=== PATIENT | male | born 1950 | race Caucasian/White ===

== ENCOUNTER 2018-08-21 15:37 | Outpatient (CLI) | payer MEDICARE, BC, SELFPAY ==
[2018-08-21 15:59] LABS: Abs Immature Grans 0.02 k/cumm (0.0-0.09); Absolute Basophil Count 0.06 k/cumm (0.0-0.2); Absolute Eosinophil Count 0.41 k/cumm (0.0-0.7); Absolute Monocyte Count 0.85 k/cumm (0.11-0.7); Absolute Neutrophil Count 4.13 k/cumm (1.2-6.7); Basophils % 0.9; Eosinophils % 6.1; HCT 34.8 % (40.0-50.0); HGB 11.2 g/dL (13.5-17.5); Immature Grans % 0.3; Lymphocytes % 19.2; Mean Corp. HGB Concentration 32.2 g/dL (32.0-36.0); Mean Corpuscular Volume 83.9 fL (80-95); Mean Platelet Volume 8.7 fL (8.0-11.0); Monocytes % 12.6; Neutrophils % 60.9; Platelet Count 251 x1000/uL (130-400); RBC 4.15 m/cumm (4.50-6.00); RBC Distribution Width 15.3 % (11.8-14.1); White Blood Cell Count 6.77 k/cumm (4.4-10.8)
[2018-08-21 16:15] LABS: Hemoglobin A1C 5.9 % (4.5-6.2)
[2018-08-21 17:07] LABS: Ferritin 20 ng/mL (8-388)
== END 2018-08-21 15:57 ==
PROVIDERS: PCP Emergency Medicine; Visit Provider Emergency Medicine
DX: D64.9 Anemia, unspecified (principal); E11.9 Type 2 diabetes mellitus without complications
CPT/HCPCS: 82728; 83036; 85025

== ENCOUNTER 2019-05-07 14:19 | Outpatient (CLI) | payer MEDICARE, BC, SELFPAY ==
--- NOTE | 2019-05-07 14:20 | DI.RAD_ITS ---
EXAM: XR CERVICAL SPINE COMP 4-5V INDICATION: neck pain, cervicalgia, M54.2. COMPARISON: No exams were available for comparison TECHNIQUE: 2D digital imaging was performed. FINDINGS: There is some straightening of the normal cervical lordosis. C2-3 disc space is well maintained. Th ere are facet degenerative changes at this level. There is moderate narrowing of the C3-4 disc space . There is moderate to severe narrowing of the C5-6 and C6-7 disc spaces. The C4-5 disc space is we ll maintained. Neural foraminal narrowing is seen on the right side from C3-4 through C6-7. IMPRESSION: Degenerative disc changes and facet degenerative changes causing right neural foraminal narrowing.
[2019-05-07 14:47] LABS: HCT 32.1 % (40.0-50.0); HGB 9.7 g/dL (13.5-17.5); Mean Corp. HGB Concentration 30.2 g/dL (32.0-36.0); Mean Corpuscular Hemoglobin 22.6 pg (27.0-33.0); Mean Platelet Volume 8.6 fL (8.0-11.0); Platelet Count 259 x1000/uL (130-400); RBC Distribution Width 16.2 % (11.8-14.1); White Blood Cell Count 4.93 k/cumm (4.4-10.8)
[2019-05-07 14:48] LABS: Mean Corpuscular Volume 74.7 fL (80-95)
[2019-05-07 15:16] LABS: Calculated LDL 136 mg/dL; Cholesterol 188 mg/dL (50-200); Ferritin 7 ng/mL (8-388); HDL Cholesterol 39 mg/dL (40-60); Triglyceride 67 mg/dL (30-150)
[2019-05-08 12:49] LABS: PSA, Screening 1.8 ng/ml (0-6.5)
== END 2019-05-07 14:39 ==
PROVIDERS: PCP Emergency Medicine; Visit Provider Emergency Medicine
DX: M54.2 Cervicalgia (principal); M50.322 Other cervical disc degeneration at C5-C6 level; M50.323 Other cervical disc degeneration at C6-C7 level; M99.51 Intervertebral disc stenosis of neural canal of cervical region; D64.9 Anemia, unspecified; I10 Essential (primary) hypertension
CPT/HCPCS: 36415; 80061; 84153; 85027; 72050; 82728

== ENCOUNTER → 2019-06-16 13:35 | Outpatient (BNVA) | payer MEDICARE, BC, SELFPAY | PROVIDERS: PCP Emergency Medicine; Referring Provider Emergency Medicine; Visit Provider Surgery | DX: D64.9 Anemia, unspecified (principal); I10 Essential (primary) hypertension; R01.1 Cardiac murmur, unspecified | CPT/HCPCS: 99203 ==

== ENCOUNTER 2019-07-02 01:15 | Outpatient (CLI) | payer MEDICARE, BC, SELFPAY ==
--- NOTE | 2019-07-02 07:34 | DI.US_ITS ---
APPROVED REPORT EXAM: Comprehensive 2D, Doppler, and color-flow Echocardiogram Patient Location: Out-Patient Spanish Speaking Nanny: Rachael Vicente RDCS ([place]) Rhythm: NSR Indications: systolic heart murmur r01.1 Conclusion Left Ventricle : The left ventricle is normal size. The left ventricular systolic function is normal. The left ventricular ejection fraction is within the normal range. Borderline left ventricular hyper trophy. There is normal LV segmental wall motion. The left ventricular diastolic function is normal. LVEF is estimated to be 55-60%. Right Ventricle : Right ventricle is mildly dilated. A prominent moderator band was visualized. The r ight ventricular systolic function is normal. Atria : The left atrium size is normal. The right atrium size is normal. Aortic Valve : Aortic valve is trileaflet. Aortic valve annulus and leaflets sparing the tips are mod erately sclerotic. No aortic regurgitation is present. Mild to moderate aortic stenosis (Mean Gradien t 15mmHg). Mitral Valve : Mitral valve leaflets are thickened. Mild mitral regurgitation. No evidence of mitral valve stenosis. Tricuspid Valve : The tricuspid valve leaflets are thickened , but open well. Trivial tricuspid regur gitation. Great Vessels : The aortic root is normal in size. IVC is top normal in size and collapses >50% with inspiration. Estimated RVSP is 15-18 mmHg. There is no prior echocardiogram available for comparison. Wall motion Left Ventricle The left ventricle is normal size. The left ventricular systolic function is normal. The left ventric ular ejection fraction is within the normal range. Borderline left ventricular hypertrophy. There is normal LV segmental wall motion. The left ventricular diastolic function is normal. LVEF is estimated to be 55-60%. Right Ventricle Right ventricle is mildly dilated. A prominent moderator band was visualized. The right ventricular s ystolic function is normal. Atria The left atrium size is normal. The right atrium size is normal. Aortic Valve Aortic valve is trileaflet. Aortic valve annulus and leaflets sparing the tips are moderately sclerot ic. Mild to moderate aortic stenosis (Mean Gradient 15mmHg). No aortic regurgitation is present. Mitral Valve Mitral valve leaflets are thickened. No evidence of mitral valve stenosis. Mild mitral regurgitation. Tricuspid Valve The tricuspid valve leaflets are thickened , but open well. Trivial tricuspid regurgitation. Pulmonic Valve Pulmonic valve is not well visualized. Great Vessels The aortic root is normal in size. IVC is top normal in size and collapses >50% with inspiration. Est imated RVSP is 15-18 mmHg. Pericardium Prominent anterior epicardial fat pad is present. 2D Dimensions IVSd 1.20 cm M: 0.6-1.2 LV EDV A2C 106.70 mL PWd 1.15 cm M: 0.6 - 1.2 LV EDV A4C 111.50 mL LVDd 4.95 cm M: 4.2 - 5.8 LA Volume Index A2C 27.30 mL/m2 LVDs 3.15 cm M: 2.5 - 4.0 LA Volume Index A4C 30.31 mL/m2 Aortic Root 3.65 cm M: 3.1 - 3.7 LA Volume Index Biplane 30.66 mL/m2 RA Area A4C 17.39 cm2 LA Area A4C 19.11 cm2 LVOT 2.15 cm (M/F) 1.5-2.5 LA Area A2C 19.34 cm2 Ascending Aorta 3.51 cm M: 2.6 - 3.4 EF AP4 58.30 % LVEF (Teich) 65.34 % EF AP2 52.30 % LVEF (Fontanez's) 54.10 % M: 52 - 72 EF BP 54.10 % LV Volume 81.75 mL M: 62 - 150 LV Volume Index 40.87 mL/m2 M: 34 - 74 FS 35.95 % LV Diastology E/A Ratio 0.8 MED E' 0.08 (>0.07 m/s) LV E/e MED 10.40 (<14) LAT E' 0.09 (>0.1 m/s) LV E/e LAT 8.75 (<14) Pulm Vein s 0.71 m/s PV S/D Ratio 1.29 Pulm Vein d 0.55 m/s Pulm Vein a 0.37 m/s Aortic Valve LVOT Area 3.74 cm2 LVOT Peak Regan. 0.95 m/s LVOT Mean Regan. 0.74 m/s LVOT Peak Gr. 3.95 mmHg BURT Vmax Index 0.68 cm2/m2 LVOT Mean Gr. 2.35 mmHg LVOT VTI 0.20 m BURT Mean Regan. Index 0.72 cm2/m2 AoV Peak Regan. 2.75 (0.5-1.3 m/s) AoV Mean Regan. 1.91 m/s AO Peak GR. 30.25 mmHg AO Mean GR. 16.01 (<5 mmHg) VTI Ratio 0.39 BURT (VTI) 1.45 (2.5-4.5 cm2) BURT (VTI) Index 0.70 cm/m2 Mitral Valve MV E Max Regan. 0.81 (0.4-1.3 m/s) MV A Velocity 1.00 (0.4-1.3 m/s) E/A Ratio 0.80 MV Decel. Time 178.35 (160-240 msec) MV PHT 51.73 msec MVA PHT 4.25 cm2 Pulmonary Valve PV Peak Velocity 1.55 (0.5-1.5 m/s) Tricuspid Valve TR P. Velocity 1.97 m/s TV Regurg Vmax 1.97 m/s RAP Estimate 3.00 mmHg RVSP 19.00 mmHg TR P. Gradient 16.00 mmHg
== END 2019-07-02 01:35 ==
PROVIDERS: PCP Emergency Medicine; Visit Provider Surgery
DX: R01.1 Cardiac murmur, unspecified (principal); I35.0 Nonrheumatic aortic (valve) stenosis
CPT/HCPCS: 93306

== ENCOUNTER 2019-07-08 06:16 | Day surgery (SDC) | payer MEDICARE, BC, SELFPAY ==
[2019-07-08 06:26] VITALS: BP 140/91; PULSE 88; RESP 17; TEMP 37; O2SAT 98
[2019-07-08] MEDS: Lactated Ringers 1,000 ML 80 ML IV (06:54)
[2019-07-08] MEDS: Lidocaine 2% Viscous 15 ML CUP (07:30)
--- NOTE | 2019-07-08 07:42 | BOWEL_PTH ---
PATIENT: Rikki Villaseñor LOC: [facility] U#:[id number] AGE/SX: 69/M ROOM: RE07/08/[address]: Viviana Naranjo MD : [id number] BED: DIS: 07/08/2019 SPEC #: [id number] RECD: 07/08/19 12:16 STATUS: CHARLY REQ #: [id number] EVE: 07/08/19 07:[address]: Viviana Naranjo DEPT: Surgical Specimen RECD BY: Rebeka Larson ENTERED: 07/08/19 12:19 SP TYPE: Bowel OTHR DR: Tani Brandon DO Tissues: 1 - BIOPSY BOWEL 2 - STOMACH BIOPSY 3 - BIOPSY BOWEL 4 - BIOPSY BOWEL Procedures: GROSS AND MICRO LEVEL 4 Comments: [id number]
--- NOTE | 2019-07-08 08:24 | W.PM.DSUDISC ---
Discharge Plan Disposition Patient Disposition: HOME Condition: Good Discharge Details Reason For Visit: EGD, Colonoscopy Attending Provider: Viviana Naranjo Primary Care Provider: Tani Brandon Home Meds and New Rx's Prescriptions: Continued polysaccharide iron complex 150 mg iron capsule 150 mg PO DAILY Qty: 90 RF: 6 ibuprofen 200 MG capsule 400 mg PO PRN RF: 0 flaxseed oil 1,000 MG capsule 1,000 mg PO DAILY RF: 0 docusate sodium [Colace] 100 MG capsule 200 mg PO DAILY RF: 0 [id number] C-Mn 1 EACH tablet 2 tab PO DAILY RF: 0 turmeric root extract 500 MG capsule 500 mg PO DAILY RF: 0 amlodipine 5 mg tablet 5 mg PO DAILY Qty: 90 RF: 4 omeprazole 40 mg capsule,delayed release(DR/EC) 40 mg PO DAILY Qty: 90 RF: 3 Discharge Instructions Additional Instructions: Findings: Your upper endoscopy was normal. Routine biopsies were done. Two small polyps were removed. My office will contact you with biopsy results. Internal hemorrhoids were banded. Pressure and a small amount of bleeding is expected. Sitz baths and ibuprofen can help with discomfort. Follow up: Plan for a colonoscopy in 5 years. Not all of the hemorrhoids were amenable to banding. If bleeding continues, surgical hemorrhoidectomy can be considered. Please call if you develop: fevers >101.5 Nausea or Vomiting Abdominal pain that is not transient DAY SURGERY UNIT POST COLONOSCOPY INSTRUCTIONS 1. Because there will be medication in your system for the next 24 hours, you may feel a little sleepy. Your coordination will be affected. Therefore: a. Do not drive or operate dangerous equipment for 24 hours. b. Do not drink alcohol beverages for 24 hours (not even beer). c. Plan to go home and rest for the day. 2. Generally there are no restrictions on your activity after a day or so has gone by, but you may feel a bit fatigued for a few days. 3 After you arrive home you may have a light meal and return to a normal diet as you can tolerate it without feeling sick to your stomach. 4. After surgery, you may feel pain or discomfort. This should be only transient, but if it persists please contact your doctor. 5. If there are any questions regarding the findings of your procedure, please feel free to contact your doctor. 6. If you are unable to contact your doctor with a problem, contact the hospital at [phone]. 6. Continue all your regular medications unless directed otherwise. I understand the above instructions and have no questions. Signature of Patient or Responsible Adult Escort Date/Time Name of Responsible Adult Escort Signature of Nurse Date/Time Activity:: Activity as Tolerated Diet:: As Tolerated Discharge Orders Discharge Orders: Discharge Order (Routine); Ordered 07/08/19 Ordered By: Viviana Naranjo DS: Diagnosis Discharge Diagnosis (1) Hemorrhoids: Status: Acute (2) Diverticulosis: Status: Acute (3) Colon polyps: Status: Acute
[2019-07-08 09:07] VITALS: BP 132/89; PULSE 61; RESP 17; TEMP 36.3; O2SAT 97
--- NOTE | 2019-07-10 10:49 | ENDO_ITS ---
REPORT OF OPERATIVE PROCEDURES DATE OF PROCEDURE July 08, 2019 PREOPERATIVE DIAGNOSES 1. Anemia. 2. Internal hemorrhoids. POSTOPERATIVE DIAGNOSES 1. Normal EGD. 2. Colon polyps. 3. Mild diverticulosis. 4. Internal hemorrhoids. PROCEDURES 1. EGD with duodenal and gastric biopsies. 2. Colonoscopy with cold forceps polypectomy. 3. Internal hemorrhoid banding. SURGEON Viviana Naranjo M.D. ANESTHESIA General. INDICATIONS This is a 69-year-old man who has microcytic anemia. His hemoglobin has declined over the past year f rom 11.2 to 9.7. He is asymptomatic with the exception of bleeding internal hemorrhoids. His last EGD and colonoscopy were in 2016. He also had hemorrhoid banding done earlier this year. PROCEDURE DESCRIPTION He was placed in the left lateral decubitus position. Propofol was titrated to sedation. The scope wa s advanced into the esophagus under direct visualization and down into the stomach and duodenum. Ther e was no duodenitis or ulcers noted. Biopsies were taken from the second portion of the duodenum to evaluate for celiac disease. The stoma ch itself appeared normal, including on retroflexed view of the fundus and the lesser curvature. Nilda tarun antrum biopsies were obtained to evaluate for H. pylori. The GE junction exhibited no masses, Bar rett's, inflammation or strictures. The air was suctioned from the stomach and the scope was withdraw n with no other esophageal lesions found. Digital rectal examination revealed mixed hemorrhoids with the more prominent one being in the right posterior location. There was a grade 3 prolapsing internal hemorrhoid that was friable and quite tino se to the dentate line. The scope was advanced to the cecum without difficulty. The ileocecal valve a nd appendiceal orifice were clearly identified. The scope was slowly withdrawn with a diminutive polyp identified in the ascending colon, this was re moved completely with cold forceps. The transverse colon was normal. In the distal descending colon a diminutive polyp was removed with the cold forceps and sent to Pathology. The remainder of the sigmo id colon was normal. The rectum revealed prominent internal hemorrhoids on retroflexed view. The air was suctioned from the colon and the scope withdrawn. The lighted anoscope was used to apply three ba nds to prominent internal hemorrhoids. Unfortunately, the area that appears to be prolapsing and it m aybe the most likely source of bleeding, was not amenable to banding due to its location near the den newman line and large nature. The patient tolerated the procedure well and was stable to Recovery. He will need a followup colonoscopy in five years pending polyp pathology. I did advise him the hemo rrhoids could be treated with a surgical hemorrhoidectomy, but I would wait approximately a month to see how successful the banding has been. He will contact me for any further symptoms. CC: Tani Brandon D.O.
== END 2019-07-08 09:40 | disposition home or self-care (01) ==
PROVIDERS: PCP Emergency Medicine; Visit Provider Surgery
PROC: (CPT 45380; principal; 2019-07-08 07:30)
DX: D64.9 Anemia, unspecified (principal); D12.2 Benign neoplasm of ascending colon; D12.4 Benign neoplasm of descending colon; K64.2 Third degree hemorrhoids; K31.89 Other diseases of stomach and duodenum; I10 Essential (primary) hypertension
CPT/HCPCS: 45380; 45398; 43239; 88305; J2250; J3010

== ENCOUNTER 2019-09-10 12:20 | Outpatient (CLI) | payer MEDICARE, BC, SELFPAY ==
[2019-09-10 16:53] LABS: HCT 32.6 % (40.0-50.0); HGB 9.7 g/dL (13.5-17.5); Mean Corp. HGB Concentration 29.8 g/dL (32.0-36.0); Mean Corpuscular Hemoglobin 21.7 pg (27.0-33.0); Mean Corpuscular Volume 72.8 fL (80-95); Mean Platelet Volume 8.9 fL (8.0-11.0); Platelet Count 315 x1000/uL (130-400); RBC 4.48 m/cumm (4.50-6.00); RBC Distribution Width 17.5 % (11.8-14.1); White Blood Cell Count 6.33 k/cumm (4.4-10.8)
[2019-09-10 18:04] LABS: Iron 19 ug/dL (65-175); Total Iron Binding Capacity 520 ug/dL (250-450); Transferrin Sat 4 % (20-55)
[2019-09-10 18:17] LABS: Ferritin 5 ng/mL (26-388)
[2019-09-10 19:10] LABS: Reticulocyte 1.2 % (0.5-2.4)
[2019-09-12 13:18] LABS: IgA 259 mg/dL (85-499); Tissue Transglutaminase IgA <1.2 U/mL (<4.0)
== END 2019-09-10 12:40 ==
PROVIDERS: PCP Emergency Medicine; Visit Provider Emergency Medicine
DX: D64.9 Anemia, unspecified (principal); K92.2 Gastrointestinal hemorrhage, unspecified
CPT/HCPCS: 36415; 82784; 83516; 85027; 82728; 83540; 83550; 85045

== ENCOUNTER 2020-02-13 10:47 | Outpatient (CLI) | payer MEDICARE, BC, SELFPAY ==
[2020-02-13 12:41] LABS: HCT 44.5 % (40.0-50.0); HGB 15.4 g/dL (13.5-17.5); Mean Corp. HGB Concentration 34.6 g/dL (32.0-36.0); Mean Corpuscular Hemoglobin 31.1 pg (27.0-33.0); Mean Corpuscular Volume 89.9 fL (80-95); Mean Platelet Volume 9.1 fL (8.0-11.0); Platelet Count 247 x1000/uL (130-400); RBC 4.95 m/cumm (4.50-6.00); Reticulocyte 1.9 % (0.5-2.4); White Blood Cell Count 6.23 k/cumm (4.4-10.8)
[2020-02-13 12:47] LABS: Iron 107 ug/dL (65-175); Total Iron Binding Capacity 360 ug/dL (250-450); Transferrin Sat 30 % (20-55)
[2020-02-13 13:00] LABS: Ferritin 99 ng/mL (26-388)
== END 2020-02-13 11:07 ==
PROVIDERS: PCP Emergency Medicine; Visit Provider Emergency Medicine
DX: D64.9 Anemia, unspecified (principal)
CPT/HCPCS: 36415; 85027; 82728; 83540; 83550; 85045

== ENCOUNTER 2020-05-05 01:33 | Outpatient (CLI) | payer MEDICARE, BC, SELFPAY ==
--- NOTE | 2020-05-05 14:06 | DI.RAD_ITS ---
EXAM: XR SHOULDER LT COMPLETE 2+V CLINICAL HISTORY: left shoulder injury,LT SHOULDER PAIN, M25.512. TECHNIQUE: 2D digital imaging was performed. COMPARISON: No exams were available for comparison FINDINGS: BONES: No acute or healing fracture is present. No bony destructive lesion is seen. JOINTS: No dislocation present. Degenerative changes are seen at the acromioclavicular joint. SOFT TISSUE: Normal. IMPRESSION: Unremarkable radiographs of the left shoulder. DATA REPOSITORY: RADIATION DOSE DELIVERED:
== END 2020-05-05 01:53 ==
PROVIDERS: PCP Emergency Medicine; Visit Provider Emergency Medicine
DX: M25.512 Pain in left shoulder (principal)
CPT/HCPCS: 73030

== ENCOUNTER 2020-06-09 21:00 | Outpatient (REF) | payer MEDICARE, BC, SELFPAY ==
[2020-06-09 22:41] LABS: HCT 45.4 % (40.0-50.0); MCH 31.7 pg (27.0-33.0); MCHC 35.2 % (32.0-36.0); MCV 90.1 fL (80-95); MPV 9.3 fL (8.0-11.0); Platelet Count 259 10^3/uL (130-400); RBC 5.04 10^6/uL (4.36-5.78); RDW 12.6 % (11.8-14.1); RDW-SD 41.2 fL; WBC 7.53 10^3/uL (4.4-10.8)
[2020-06-09 22:58] LABS: Ferritin 138 ng/mL (26-388)
== END 2020-06-09 21:20 ==
LOC: LBN 21:00
PROVIDERS: PCP Emergency Medicine; Visit Provider Emergency Medicine
DX: D64.9 Anemia, unspecified (principal)
CPT/HCPCS: 85027; 82728

== ENCOUNTER 2020-08-11 19:57 | Outpatient (REF) | payer MEDICARE, BC, SELFPAY ==
[2020-08-11 22:20] LABS: HCT 45.1 % (40.0-50.0); HGB 15.7 g/dL (13.5-17.5); MCH 31.3 pg (27.0-33.0); MCHC 34.8 % (32.0-36.0); MCV 89.8 fL (80-95); MPV 9.2 fL (8.0-11.0); Platelet Count 253 10^3/uL (130-400); RBC 5.02 10^6/uL (4.36-5.78); RDW 12.5 % (11.8-14.1); RDW-SD 41.3 fL; WBC 6.65 10^3/uL (4.4-10.8)
[2020-08-11 22:36] LABS: Ferritin 172 ng/mL (26-388)
== END 2020-08-11 20:17 ==
LOC: NCHCN 19:57
PROVIDERS: PCP Emergency Medicine; Visit Provider Emergency Medicine
DX: D64.9 Anemia, unspecified (principal)
CPT/HCPCS: 85027; 82728

== ENCOUNTER 2021-08-30 02:00 | Outpatient (CLI) | payer MEDICARE, SELFPAY ==
[2021-08-30 14:34] LABS: HCT 47.2 % (40.0-50.0); MCH 30.9 pg (27.0-33.0); MCHC 33.9 % (32.0-36.0); MCV 91.1 fL (80-95); MPV 8.5 fL (8.0-11.0); Platelet Count 255 10^3/uL (130-400); RBC 5.18 10^6/uL (4.36-5.78); RDW 12.9 % (11.8-14.1); RDW-SD 43.6 fL; WBC 6.63 10^3/uL (4.4-10.8)
[2021-08-30 15:32] LABS: Anion Gap 8.3 mmol/L (3-11); BUN 15 mg/dL (7-18); CO2 28.7 mmol/L (21.0-32.0); Calcium 9.2 mg/dL (8.5-10.1); Chloride 102 mmol/L (98-107); Glucose 97 mg/dL (74-106); Potassium 4.1 mmol/L (3.5-5.1); Sodium 139 mmol/L (136-145)
[2021-08-30 15:35] LABS: Iron 121 ug/dL (65-175); Total Iron Binding Capacity 360 ug/dL (250-450); Transferrin Sat 34 % (20-55)
== END 2021-08-30 02:01 | disposition home or self-care (01) ==
LOC: LBO 02:00
PROVIDERS: PCP Family Medicine; Visit Provider Emergency Medicine
DX: I10 Essential (primary) hypertension (principal); D64.9 Anemia, unspecified
CPT/HCPCS: 36415; 80048; 85027; 83540; 83550

== ENCOUNTER → 2022-02-14 02:47 | Outpatient (CLI) | payer MEDICARE, SELFPAY ==
--- NOTE | 2022-02-14 11:59 | DI.US_ITS ---
APPROVED REPORT EXAM: Comprehensive 2D, Doppler, and color-flow Echocardiogram Patient Location: Out-Patient Extractions Technician: Marnie Kebede RDCS ([place]) Indications: Evaluate for interval change, prominent murmur, HTN Other Information Study Quality: Adequate Conclusion Normal left ventricular wall thickness and chamber size. Estimated ejection fraction is 55 to 60%. Wall motion is normal Normal right ventricular size and systolic function Both atria are normal in size The aortic valve is sclerotic. Number of aortic valve leaflets cannot be accurately determined. The re is mild aortic stenosis by gradients. Peak gradient is 18, mean 14 mmHg. Calculated aortic valve area is 1.03 cm??, moderate aortic stenosis Normal mitral valve with mild regurgitation Normal tricuspid valve with trace regurgitation. Right ventricular systolic pressure could not be es timated Compared to the echocardiogram from 2019 there is no significant interval change Wall motion Left Ventricle The left ventricle is normal size. The left ventricular systolic function is normal. The left ventric ular ejection fraction is within the normal range. There is normal left ventricular wall thickness. T here is normal LV segmental wall motion. There is no ventricular septal defect visualized. LVEF is 55 -60%. Right Ventricle The right ventricle is normal size. The right ventricular systolic function is normal. Atria The left atrium size is normal. The right atrium size is normal. The interatrial septum is intact wit h no evidence for an atrial septal defect. Aortic Valve The Aortic valve is sclerotic. Aortic valve is calcified. Mild aortic stenosis. Peak aortic valve gra dient is 26.1mmHg. Highest mean aortic valve gradient is 14.2mmHg. Calculated BURT by the continuity e quation is 1.03cm2. No aortic regurgitation is present. Mitral Valve The mitral valve is normal in structure. No evidence of mitral valve stenosis. Mild mitral regurgitat ion.. Tricuspid Valve The tricuspid valve is normal in structure. There is no tricuspid valve stenosis. Trace tricuspid reg urgitation. Pulmonic Valve The pulmonary valve is normal in structure. There is no pulmonic valvular stenosis. There is no pulmo александр valvular regurgitation. Great Vessels The aortic root is normal in size. The ascending aorta is normal in size. Aortic arch is normal in ca liber. IVC is normal in size and collapses >50% with inspiration. Pericardium There is no pericardial effusion. 2D Dimensions IVSD d PLAX 1.04 cm M: 0.6-1.2 LV Vol A2C d MOD 69.2 mL LVPW d PLAX 1.03 cm M: 0.6 - 1.2 LV Vol A4C d MOD 110.4 mL LVID d PLAX 4.67 cm M: 4.2 - 5.8 LA vol/ BSA A2C s A-L 19.5 mL/m2 LVDs 3.10 cm M: 2.5 - 4.0 LA vol/ BSA A4C s A-L 18.9 mL/m2 Ao Root d 2.70 cm M: 3.1 - 3.7 LA Vol/ BSA Biplane s A-L 20.4 mL/m2 RA Area A4C 12.96 cm2 LA Area A4C s MOD 13.97 cm2 RA Vol/ BSA A4C s A-L 15.6 mL/m2 LA Area A2C s MOD 15.06 cm2 Ao Asc Diam d 3.45 cm M: 2.6 - 3.4 LV EF A4C MOD 55.3 % LV EF Teichholz 61.8 % LV EF A2C MOD 60.7 % LVEF (Fontanez's) 57.55 % M: 52 - 72 LV EF Biplane MOD 57.5 % LV Volume 67.07 mL M: 62 - 150 SV 51.57 mL LV Volume Index 33.36 mL/m2 M: 34 - 74 SV Index 25.62 mL/m2 LV Vol Biplane MOD 89.6 mL FS 33.15 % M-Mode TAPSE 2.45 cm (M/F) >1.7 LV Diastology MV E' medial 0.067 (>0.07 m/s) E/A Ratio 0.8 LV E/e MED 10.00 (<14) MV E Vmax 0.67 (0.4-1.3 m/s) MV E' lateral 0.104 (>0.1 m/s) MV A Vmax 0.80 (0.4-1.3 m/s) LV E/e LAT 6.45 (<14) MV E/A Ratio 0.83 MV E/E' medial 10.03 MV E/E' lateral 6.49 Aortic Valve LVOT Area 2.88 cm2 AoV Area Vmax 1.03 cm2 LVOT Vmax 0.92 m/s AoV Area/ BSA (Vmax) 0.51 cm2/m2 LVOT Mean Regan. 0.59 m/s BURT Mean Regan. 0.97 cm2 LVOT Peak Grad 3.4 mmHg BURT Mean Regan. Index 0.48 cm2/m2 LVOT Mean Grad 1.6 mmHg LVOT VTI 0.211 m LVOT Diam s 1.90 cm AoV Vmax 2.56 m/s Velocity Ratio 0.35 AoV Mean Regan. 1.75 m/s AoV Peak Grad 26.1 mmHg LVOT SV 60.84 mL AoV Mean Grad 14.2 mmHg AoV VTI 0.541 m AoV Area VTI 1.12 cm2 AoV Area/ BSA (VTI) 0.56 cm/m2 Mitral Valve MV DT 218 (160-240 msec) MV PHT 63 msec MV Area PHT 3.48 cm2 MV VTI 0.333 m MV Area VTI 1.83 (4.0-6.0 cm2) Pulmonary Valve PV Vmax 1.49 (0.5-1.5 m/s) RVOT Peak Gr. 2.75 mmHg PV Peak Grad 8.9 mmHg RVOT Mean Gr. 1.55 mmHg PV Mean Grad 4.9 mmHg RVOT VTI 0.133 m PV VTI 0.360 m RVOT Vmax 0.83 m/s
== END ==
PROVIDERS: PCP Family Medicine; Visit Provider Family Medicine
DX: I10 Essential (primary) hypertension (principal); R01.1 Cardiac murmur, unspecified
CPT/HCPCS: 93306

== ENCOUNTER 2022-05-25 16:08 | Inpatient (IN) | payer MEDICARE, SELFPAY ==
--- NOTE | 2022-05-25 16:00 | RT.EKG_ITS ---
APPROVED REPORT Exam: Resting ECG Reason for Exam: epigastric pain Patient Location: E HR:106 bpm ECG Measurements Heart Rate 106 AXIS AZ 160 P 56 QRSd 78 QRS 57 QT 299 T 55 QTc 398 Conclusion Sinus tachycardia...rate> 99 Probable left atrial enlargement...P >50mS, <-0.10mV V1 Normal [place] Nonspecific ST-T changes
[2022-05-25 16:10] VITALS: BP 158/95; PULSE 115; RESP 20; TEMP 37.6; O2SAT 98
--- NOTE | 2022-05-25 17:15 | ED.GENADUL_ITS ---
Discharge Plan Disposition Patient Disposition: [facility] INPATIENT Condition: Stable Discharge Details Clinical Impression: Cholecystitis Admit Date/Time: 05/25/22 19:54 Admit Provider: Javier Nava Attending Provider: Javier Nava Primary Care Provider: Arleth Portillo ED Provider: Zamzam Solares Medical Decision Making 71-year-old male presents to the ER with chief complaint of epigastric abdominal pain, vomiting and feeling bloated which began last night. He reports during rest of today he has had acid reflux. He did vomit once which somewhat relieves his symptoms. He does have a past medical history of aortic stenosis, GERD, hemorrhoids, hyperlipidemia, hypertension. EKG was reviewed by Dr. Luna ER attending, please see his official review, no old EKG available for review, there is questionable ST elevation in leads II and III Cardiac work-up ordered including serial troponins, lipase CBC CMP. Will consider CT chest abdomen pelvis. Differential diagnosis includes not limited to CAD, CT, NSTEMI, GERD, cholecystitis, bowel obstruction. CBC shows no leukocytosis, absolute neutrophils 8.93, sodium within normal limits potassium within normal limits, BUN/creatinine also within normal limits, glucose 133 calcium 10.2, total bilirubin is 3.5, liver enzymes are elevated AST is 412, ALT 622 alk phos 260. Initial troponin within normal limits lipase 182. 1935: CT shows gallbladder wall thickening and a vague increased density within the gallbladder. Suspected large gallstone in the neck. Patient is still complaining of some GERD type symptoms. Surgery paged. 194: Spoke with Dr. Nava with General surgery he was able to personally view the CT, He recommends admission and re-eval of labs tomorrow and possibly surgery. Imaging Data Radiologic Study: Imaging: CT Scan Radiologist's impression: Liver: Fatty infiltration. Small simple cyst noted. Gallbladder and bile ducts: Gallbladder wall thickening and vague increased density within. Suspected large gallstone in the neck No calcified stones. No ductal dilation. Pancreas: No ductal dilation. Spleen: No splenomegaly. Adrenal glands: No mass. Kidneys and ureters: Renal hypodensities not clearly cystic No hydronephrosis. Stomach and bowel: Colonic diverticulosis. No obstruction. No mucosal thickening. Appendix: No evidence of appendicitis. Intraperitoneal space: Unremarkable. No free air. No significant fluid collection. Vasculature: Unremarkable. No abdominal aortic aneurysm. Lymph nodes: Unremarkable. No enlarged lymph nodes. Urinary bladder: Unremarkable as visualized. Reproductive: Unremarkable as visualized. Bones/joints: Unremarkable. No acute fracture. Soft tissues: Unremarkable. IMPRESSION: Abnormal gallbladder as described. Consider right upper quadrant ultrasound Nonurgent findings as noted HPI General Mode of arrival: ambulatory . Date/Time Provider Initiated Documentation: 05/25/22 16:35 . Limitations to Documentation: no limitations . Information obtained by: patient, RN notes reviewed and old records reviewed . HPI Narrative: 71-year-old male presents to the ER with chief complaint of epigastric abdominal pain, vomiting and feeling bloated which began last night. He reports during rest of today he has had acid reflux. He did vomit once which somewhat relieves his symptoms. He does have a past medical history of aortic stenosis, GERD, hemorrhoids, hyperlipidemia, hypertension. Last bowel movement was yesterday. Related Data Home Medications Medication Instructions Recorded Confirmed docusate sodium 100 mg capsule 200 mg PO DAILY 12/19/12 05/25/22 (Colace) flaxseed oil 1,000 mg capsule 1,000 mg PO DAILY 12/19/12 05/25/22 ibuprofen 200 mg capsule 400 mg PO PRN 12/19/12 05/25/22 turmeric root extract 500 mg 500 mg PO DAILY 04/16/15 05/25/22 capsule polysaccharide iron complex 150 mg 150 mg PO DAILY #90 caps 06/09/19 05/25/22 iron capsule amlodipine 5 mg tablet 5 mg PO DAILY #90 tab-caps 05/22/21 05/25/22 lisinopril 10 mg tablet 10 mg PO DAILY #90 tabs 05/04/22 05/25/22 omeprazole 40 mg capsule,delayed 40 mg PO DAILY #90 tab-caps 05/24/22 05/25/22 release Previous Rx's Medication Instructions Recorded polysaccharide iron complex 150 mg 150 mg PO DAILY #90 caps 06/09/19 iron capsule amlodipine 5 mg tablet 5 mg PO DAILY #90 tab-caps 05/22/21 lisinopril 10 mg tablet 10 mg PO DAILY #90 tabs 05/04/22 omeprazole 40 mg capsule,delayed 40 mg PO DAILY #90 tab-caps 05/24/22 release Allergies Allergy/AdvReac Type Severity Reaction Status Date / Time No Known Allergies Allergy Verified 01/30/22 16:51 General Stated Complaint: Abd Prob DELILAH: 3 Review of Systems All systems reviewed & are unremarkable except as noted in HPI and below Constitutional Constitutional: Denies chills and Denies fever(s) Cardiovascular Cardiovascular: Reports as per HPI and Denies dyspnea Respiratory Respiratory: Denies cough and Denies dyspnea Gastrointestinal Gastrointestinal: Reports abdominal pain, Reports bloating, Reports dyspepsia, Reports heartburn and Reports vomiting PFSH All Active Problems (Updated 05/25/22 @ 19:46 by Zamzam Solares NP) Cholecystitis (Acute) Aortic stenosis (Chronic) 2018-mild to moderate by echocardiogram, normal cardiac function Colon polyps (Acute) Esophageal reflux (Acute) H.H.; duodenitis Hemorrhoids (Acute) Hyperlipidemia (Acute 01/22/13) Overweight (Acute) Impaired fasting glucose (Acute) Gastrointestinal hemorrhage (Acute) due to internal hemorrhoids. 04/07 EGD: gastric polyps Colon: diverticulosis Gastroesophageal reflux disease with esophagitis (Acute) H.H.; duodenitis Gastric polyps (Acute 04/27/16) Essential hypertension (Acute) Medical History Anemia 2019-secondary to GI bleed, resolved Surgical History Hemorrhoidal Banding History of colonoscopy (~06/2019) 07/10 - tubular adenoma. History of umbilical hernia repair Family History Mother Diabetes Essential hypertension Heart disease Hyperlipidemia Breast cancer Father Diabetes Essential hypertension Heart disease Sister Breast cancer Brother Hyperlipidemia Brother , 6 months old CF (cystic fibrosis) Brother CF (cystic fibrosis) Brother CF (cystic fibrosis) Maternal Grandfather No problems noted. Paternal Grandfather Diabetes Maternal Grandmother No problems noted. Paternal Grandmother No problems noted. Son Depression Daughter No problems noted. 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 Pets and animals: Yes Pets and animals: cat(s) Sexually active: Yes Do you think of yourself as: straight/heterosexual Current gender identity: male What is your relationship status?: How often do you talk on the phone with friends or family?: three or more times per week How often do you get together with friends or relatives?: three or more times per week How often do you attend restoration or baptism services?: 1-3 times per year Do you belong to any clubs or organized social groups?: yes Panel score (0-1 are the most socially isolated patients): 3 What type of physical activity do you participate in: walking Duration: < 15 minutes/day Frequency: daily Ayse/Yazidi: Anglican Special ayse needs: No Seatbelt use: sometimes Helmet use: Yes Helmet use: always Drive intox or ride w/intox driver material handler: No Do you feel safe at home: Yes Do you feel safe in your relationship?: Yes Exam Narrative Exam Narrative: Constitutional: Alert and oriented x3. Appears stated age. Normal body habitus. Head: Normocephalic, no trauma. Eyes: Pupils PERRL, Red reflex noted, EOM's intact. Eyelids symmetrical without lesions, discharge, or swelling. ENT: Bilateral TM's WNL, External ear normal to inspection, no mastoid TTP, swelling, or erythema, Nasal turbinates WNL, no nasal discharge. Normal dentition, Posterior pharynx WNL, no exudate. Chest: RRR, Normal S1, S2, distal pulses intact. Resp: Lungs clear to auscultation bilaterally, no wheezes, rales, or rhonchi. Abdomen: Appears somewhat distended however patient reports this is normal for him, normoactive bowel sounds all 4 quads. Musculoskeletal: Normal gait, 5/5 strength to all four extremities. Skin: No suspicious rashes or lesions. Capillary refill less than 2 sec. Neurologic: Cranial nerves II-XII intact. Alert and oriented x 3. Motor: No deficits noted. Sensory: Intact bilaterally all 4 extremities. Reflexes: DTR's intact bilaterally.. Hematologic/Lymphatic: No ecchymosis, no lymphadenopathy. Course Vital Signs Vital signs: Vital Signs Temperature 37.6 C 05/25/22 16:10 Pulse 115 H 05/25/22 16:10 Respiratory Rate 20 05/25/22 16:10 Blood Pressure 158/95 H 05/25/22 16:10 Pulse Oximetry 98 05/25/22 16:10 Temperature 37.6 C 05/25/22 16:10 Temperature Source Oral 05/25/22 16:10 Pulse 115 H 05/25/22 16:10 Respiratory Rate 20 05/25/22 16:10 Respiratory Effort Non-Labored 05/25/22 16:17 Blood Pressure 158/95 H 05/25/22 16:10 Pulse Oximetry 98 05/25/22 16:10 Pain Level 4 05/25/22 16:10
[2022-05-25 17:33] LABS: Abs Immature Grans 0.03 10^3/uL (0.0-0.06); Absolute Basophil Count 0.04 10^3/uL (0.0-0.2); Absolute Eosinophil Count 0.13 10^3/uL (0.0-0.7); Absolute Lymphocyte Count 0.62 10^3/uL (1.2-3.4); Absolute Monocyte Count 1.02 10^3/uL (0.1-0.8); Absolute Neutrophil Count 8.93 10^3/uL (1.2-6.7); Basophils % 0.4; Eosinophils % 1.2; HCT 47.2 % (40.0-50.0); HGB 16.2 g/dL (13.5-17.5); Immature Grans % 0.3; Lymphocytes % 5.8; MCH 31.2 pg (27.0-33.0); MCHC 34.3 % (32.0-36.0); MCV 91 fL (80-95); Monocytes % 9.5; Neutrophils % 82.8; Platelet Count 236 10^3/uL (130-400); RDW 12.8 % (11.8-14.1); RDW-SD 42.5 fL; WBC 10.77 10^3/uL (4.4-10.8)
[2022-05-25 17:54] VITALS: BP 137/85; PULSE 99; RESP 16; O2SAT 97
[2022-05-25 17:55] LABS: ALT 622 U/L (16-63); AST 412 U/L (15-37); Albumin 4.1 g/dL (3.4-5.0); Alkaline Phosphatase 260 U/L (46-116); Anion Gap 7.9 mmol/L (3-11); BUN 18 mg/dL (7-18); Bilirubin, Total 3.5 mg/dL (0.2-1.0); CO2 28.1 mmol/L (21.0-32.0); CREATININE 1.1 mg/dL (0.70-1.30); Calcium 10.2 mg/dL (8.5-10.1); Chloride 101 mmol/L (98-107); Estimated GFR 70.88 (mL/min/1.73m2); Glucose 133 mg/dL (74-106); Lipase 182 U/L (73-393); Potassium 4.8 mmol/L (3.5-5.1); Sodium 137 mmol/L (136-145); Troponin I < 50 ng/L (<or=60)
--- NOTE | 2022-05-25 18:15 | DI.CT_ITS ---
Exam(s) CT ABDOMEN PELVIS W EXAM: CT ABDOMEN PELVIS W CLINICAL HISTORY: Abd Pain, Elevated liver enzymes. TECHNIQUE: Imaging Protocol: Axial computed tomography images with coronal and sagittal reformatted images were created and reviewed CONTRAST MATERIAL: Intravenous: Omnipaque 100cc Oral: None COMPARISON: No exams were available for comparison FINDINGS: VISUALIZED LUNG BASES: No nodules nor pleural effusions evident. ABDOMEN: There is no ascites. LIVER: There is a small 6 millimeter benign-appearing hypodense lesion in the right hepatic lobe whic h is probably cyst or hemangioma. There are few dilated ducts in the left hepatic lobe noted. GALLBLADDER/BILIARY: There is a prominent 2.8 by 2.5 cm calculus in the gallbladder neck and another similar size calculus is seen closer to the fundus. Gallbladder some size is slightly prominent but does not appear edematous and there is no pericholecystic fluid. CBD is not dilated. PANCREAS: No evidence of pancreatic mass nor dilatation of the pancreatic duct. SPLEEN: Spleen is not enlarged. No obvious intrasplenic lesions. Splenic and portal veins are paten t. ADRENALS: There are no significant adrenal masses. KIDNEYS:Small benign sub cm cyst in the left kidney. No solid renal masses. No calculi nor hydronep hrosis.. ABDOMINAL AORTA: Abdominal aorta is not enlarged. LYMPH NODES:There is no retroperitoneal nor paraaortic adenopathy. ABDOMINAL WALL: No evidence of significant anterior abdominal wall nor inguinal hernia. GI: There is no evidence of bowel obstruction, free air, nor abscess. PELVIS: GI: No evidence of appendicitis.There is sigmoid diverticulosis and there also multiple diverticuli i n the descending-left colon. There is no evidence of acute diverticulitis. No free fluid. LYMPH NODES: There is no intrapelvic nor inguinal adenopathy. REPRODUCTIVE: Prostate gland is enlarged. Measures 6 cm across. There is no obturator adenopathy. URINARY BLADDER: No calculi nor obvious masses evident OSSEOUS: No significant osseous lesions. No fractures. IMPRESSION: 1. Cholelithiasis, as described above. Large calculus is located in the gallbladder neck. Gallbladd er is mildly distended but not edematous and there is no pericholecystic fluid. The CBD is not dilat ed. However, there are a few slightly dilated ducts in the left hepatic lobe noted. Small benign cueva b cm cyst noted in the right hepatic lobe. 2. Diverticulosis of the left side of the colon and sigmoid but no evidence of acute diverticulitis. No appendicitis. 3. No ascites. 4. Enlarged prostate gland. No obturator adenopathy nor adenopathy elsewhere in the pelvis. RADIATION DOSE DELIVERED: 941.55mGy.cm Total DLP DATA REPOSITORY: All CT scans at this facility are submitted to the National Radiology Data Registry (NRDR) Dose Index Registry (DIR) with the [employer] [place] [employer] (ACR). RADIATION OPTIMIZATION: All CT scans at this facility use at least one of these dose optimization te chniques: automated exposure control; mA and/or kV adjustment per patient size (includes targeted exa ms where dose is matched to clinical indication); or iterative reconstruction.
[2022-05-25] MEDS: Ondansetron 4 MG/2 ML VIAL IVP (18:53)
[2022-05-25] MEDS: Omnipaque 350 MG/ML 100 ML BTL IJ (19:24)
--- NOTE | 2022-05-25 19:30 | DI.VRAD_ITS ---
PROCEDURE INFORMATION: Exam: CT Abdomen And Pelvis With Contrast Exam date and time: 05/25/2022 7:20 PM Age: 72 years old Clinical indication: Other: Abd pain, elevated liver enzymes TECHNIQUE: Imaging protocol: Computed tomography of the abdomen and pelvis with contrast. Contrast material: 350; Contrast volume: 100 ml; Contrast route: INTRAVENOUS (IV); COMPARISON: No relevant prior studies available. FINDINGS: Liver: Fatty infiltration. Small simple cyst noted. Gallbladder and bile ducts: Gallbladder wall thickening and vague increased density within. Suspected large gallstone in the neck No calcified stones. No ductal dilation. Pancreas: No ductal dilation. Spleen: No splenomegaly. Adrenal glands: No mass. Kidneys and ureters: Renal hypodensities not clearly cystic No hydronephrosis. Stomach and bowel: Colonic diverticulosis. No obstruction. No mucosal thickening. Appendix: No evidence of appendicitis. Intraperitoneal space: Unremarkable. No free air. No significant fluid collection. Vasculature: Unremarkable. No abdominal aortic aneurysm. Lymph nodes: Unremarkable. No enlarged lymph nodes. Urinary bladder: Unremarkable as visualized. Reproductive: Unremarkable as visualized. Bones/joints: Unremarkable. No acute fracture. Soft tissues: Unremarkable. IMPRESSION: Abnormal gallbladder as described. Consider right upper quadrant ultrasound Nonurgent findings as noted Dictated and Authenticated by: Danny Angela MD. Ordering:VANESSA Wyman MD
--- NOTE | 2022-05-25 19:53 | W.PM.HP.N ---
Date of service: 05/25/22 Time of Service: 19:53 Assessment and Plan Assessment and plan (1) Cholecystitis: Status: Acute Assessment and plan: I will repeat the liver function tests. If the bilirubin or LFTs are still abnormal, then he needs an MRCP. If they are normalizing, then we can proceed with cholecystectomy. History of Present Illness History of Present Illness Chief Complaint: Abdominal pain Narrative: Rikki is 72 years old and presents with midepigastric post prandial abdominal pain. He has had 2 or 3 distinct episodes, and perhaps some other times that were less obvious. He denies any relief with vomiting. He came to the emergency department, and underwent a CAT scan of the abdomen and pelvis that supported the diagnosis of a large gallbladder stone. LFTs were elevated, with a mild obstructive pattern. PFSH All Active Problems (Updated 05/25/22 @ 19:46 by Zamzam Solares NP) Cholecystitis (Acute) Aortic stenosis (Chronic) 2018-mild to moderate by echocardiogram, normal cardiac function Colon polyps (Acute) Esophageal reflux (Acute) H.H.; duodenitis Hemorrhoids (Acute) Hyperlipidemia (Acute 01/22/13) Overweight (Acute) Impaired fasting glucose (Acute) Gastrointestinal hemorrhage (Acute) due to internal hemorrhoids. 04/07 EGD: gastric polyps Colon: diverticulosis Gastroesophageal reflux disease with esophagitis (Acute) H.H.; duodenitis Gastric polyps (Acute 04/27/16) Essential hypertension (Acute) Medical History Anemia 2019-secondary to GI bleed, resolved Surgical History Hemorrhoidal Banding History of colonoscopy (~06/2019) 07/10 - tubular adenoma. History of umbilical hernia repair Family History Mother Diabetes Essential hypertension Heart disease Hyperlipidemia Breast cancer Father Diabetes Essential hypertension Heart disease Sister Breast cancer Brother Hyperlipidemia Brother , 6 months old CF (cystic fibrosis) Brother CF (cystic fibrosis) Brother CF (cystic fibrosis) Maternal Grandfather No problems noted. Paternal Grandfather Diabetes Maternal Grandmother No problems noted. Paternal Grandmother No problems noted. Son Depression Daughter No problems noted. 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 Pets and animals: Yes Pets and animals: cat(s) Sexually active: Yes Do you think of yourself as: straight/heterosexual Current gender identity: male What is your relationship status?: How often do you talk on the phone with friends or family?: three or more times per week How often do you get together with friends or relatives?: three or more times per week How often do you attend islam or taoist services?: 1-3 times per year Do you belong to any clubs or organized social groups?: yes Panel score (0-1 are the most socially isolated patients): 3 What type of physical activity do you participate in: walking Duration: < 15 minutes/day Frequency: daily Ayse/Presybeterian: Pentecostal Special ayse needs: No Seatbelt use: sometimes Helmet use: Yes Helmet use: always Drive intox or ride w/intox distribution driver: No Do you feel safe at home: Yes Do you feel safe in your relationship?: Yes Meds Allergies and Home Medications Allergies Allergy/AdvReac Type Severity Reaction Status Date / Time No Known Allergies Allergy Verified 01/30/22 16:51 Home Medications Medication Instructions Recorded Confirmed Type docusate sodium 100 mg capsule 200 mg PO DAILY 12/19/12 05/25/22 History (Colace) flaxseed oil 1,000 mg capsule 1,000 mg PO DAILY 12/19/12 05/25/22 History ibuprofen 200 mg capsule 400 mg PO PRN 12/19/12 05/25/22 History turmeric root extract 500 mg 500 mg PO DAILY 04/16/15 05/25/22 History capsule polysaccharide iron complex 150 mg 150 mg PO DAILY #90 caps 06/09/19 05/25/22 Rx iron capsule amlodipine 5 mg tablet 5 mg PO DAILY #90 tab-caps 05/22/21 05/25/22 Rx lisinopril 10 mg tablet 10 mg PO DAILY #90 tabs 05/04/22 05/25/22 Rx omeprazole 40 mg capsule,delayed 40 mg PO DAILY #90 tab-caps 05/24/22 05/25/22 Rx release Exam Const General: cooperative, healthy appearing and comfortable Orientation: awake and oriented x3 Eyes General: appearance normal, both eyes and all related structures Conjunctivae: conjunctivae normal Sclera: sclerae normal Chest Chest: normal inspection of the chest Resp Effort & Inspection: normal respiratory effort and able to speak in complete sentences Auscultation: clear to auscultation bilaterally Cardio Jugular venous pressure: no JVD Rate: regular rate Rhythm: regular rhythm Heart Sounds: S1 normal, S2 normal and no murmurs GI Inspection: non-distended Palpation: soft, no guarding, no hernias and nontender Auscultation: normal bowel sounds Other: He has a healed umbilical hernia scar Skin General skin exam: normal turgor Neuro General: patient alert, patient awake and patient oriented x3 Cognition: normal cognition Extrem Right lower extremity: no edema Left lower extremity: no edema Results Labs Result diagrams: 05/25/22 17:25 05/25/22 17:25 Labs: Laboratory Results - last 24 hr 05/25/22 05/25/22 17:25 17:25 WBC 10.77 RBC 5.20 Hgb 16.2 Hct 47.2 MCV 91 MCH 31.2 MCHC 34.3 RDW 12.8 Plt Count 236 MPV 9.0 Immature Gran % 0.3 Neutrophils % 82.8 Lymphocytes % 5.8 Monocytes % 9.5 Eosinophils % 1.2 Basophils % 0.4 Nucleated RBC % 0.0 Absolute Neutrophils 8.93 H Absolute Lymphocytes 0.62 L Absolute Monocytes 1.02 H Absolute Eosinophils 0.13 Absolute Basophils 0.04 Sodium 137 Potassium 4.8 Chloride 101 Carbon Dioxide 28.1 Anion Gap 7.9 BUN 18 Creatinine 1.1 Est GFR (CKD-EPI 2020) 70.88 Glucose 133 H Calcium 10.2 H Magnesium 2.0 Total Bilirubin 3.5 H AST 412 H ALT 622 H Alkaline Phosphatase 260 H Troponin I < 50 Total Protein 8.0 Albumin 4.1 Lipase 182 Last Vital Signs Temp 99.6 F 05/25/22 16:10 Pulse 99 H 05/25/22 17:54 Resp 16 05/25/22 17:54 BP 137/85 05/25/22 17:54 Pulse Ox 97 05/25/22 17:54
[2022-05-25] MEDS: Famotidine 20 MG/2 ML VIAL IVP (19:55)
[2022-05-25] MEDS: Normal Saline 1,000 ML 150 ML IV (19:57)
[2022-05-25 20:39] VITALS: BP 142/79; PULSE 99; RESP 18; TEMP 37.8; O2SAT 97
[2022-05-25 21:15] LABS: Troponin I < 50 ng/L (<or=60)
[2022-05-25 21:27] LABS: Lipase 160 U/L (73-393)
[2022-05-25 21:28] VITALS: BP 131/76; PULSE 98; RESP 18; TEMP 37.2; O2SAT 95
[2022-05-25] MEDS: Acetaminophen 500 MG TAB 1000 MG PO (21:45)
[2022-05-25] MEDS: Enoxaparin 40 MG/0.4 ML SYR SC (21:46)
[2022-05-25] MEDS: Lactated Ringers 1,000 ML 75 ML IV (21:47)
[2022-05-25] MEDS: PIPERACILLIN/TAZO 3.375 GM in Normal Saline 50 ML IVPB (21:47)
--- NOTE | 2022-05-26 | DI.MRI_ITS ---
Exam(s) MR ABDOMEN WO EXAM: MR ABDOMEN WO CLINICAL HISTORY: r/o choledocolithiasis TECHNIQUE: Multiplanar multisequence MRI was performed without IV contrast. MRCP also performed. COMPARISON: Prior CT scan was reviewed. FINDINGS: VISUALIZED LUNG BASES: No pleural effusions evident. There is no ascites evident. LIVER: Liver size is normal. There is a 6 x 5 millimeter finding in the right hepatic lobe which is either cyst or hemangioma, difficult to differentiate between the 2 without IV contrast. Nevertheles s, benign appearance. No other findings in the right lobe. In the left lobe there are some dilated ducts evident, as also seen on the prior CT scan. There are no dilated ducts in the right lobe. BILIARY: There are prominent gallstones at all levels of the gallbladder. There is a 2.5 x 2.3 cm ga llstone at the junction of the body and neck. Gallbladder does not appear edematous and there is no pericholecystic fluid. The CBD is not dilated. However, there is a subtle finding in the lower CBD approximately 2 cm above the duodenal entrance. PANCREAS: There is no evidence of pancreatic mass nor dilatation of the pancreatic duct. SPLEEN: Spleen is not enlarged and there are no intrasplenic lesions. ADRENALS: There are no significant adrenal masses. KIDNEYS: There is a tiny benign cyst in the posterior cortex of the left kidney measuring less than 1 cm.There are no solid renal masses. No hydronephrosis. ABDOMINAL AORTA: Not enlarged and there is no significant para-aortic adenopathy. ANTERIOR ABDOMINAL WALL/GI: There is no evidence of significant anterior abdominal wall hernia in the field of view of this study.Is no evidence of obvious bowel obstruction. OSSEOUS: There are no lytic osseous lesions in the field of view of this study. IMPRESSION: 1. Cholelithiasis. There are multiple large gallstones in the gallbladder lumen including a 2.5 x 2. 8 cm calculus at the junction of the gallbladder body and neck. Gallbladder does not appear to be ed ematous and there is no pericholecystic fluid. 2. The main left hepatic duct is not dilated but there is a conglomeration of dilated ducts in the mi d aspect of the left hepatic lobe, either related to a local obstruction or on developmental basis. 3. CBD diameter is normal. However, there is a subtle finding in the distal half of the CBD approxim ately 2 cm from the ampulla which is evident on the MRCP images. May represent a stricture; less lik chapito a calculus. If this patient is going to have cholecystectomy than intraoperative cholangiogram w ill add specificity with respect to this lower CBD finding and possibly also with respect of the left hepatic lobe findings. 4. There is a benign sub cm cyst in the right hepatic lobe, corresponding to what is seen on the rec ent CT scan. DATA REPOSITORY:
[2022-05-26 03:25] VITALS: BP 113/65; PULSE 62; RESP 18; TEMP 36.5; O2SAT 97
[2022-05-26] MEDS: PIPERACILLIN/TAZO 3.375 GM in Normal Saline 50 ML IVPB ×4 (04:25→21:36)
[2022-05-26] MEDS: Acetaminophen 500 MG TAB 1000 MG PO ×3 (05:30→21:35)
[2022-05-26 07:10] LABS: Abs Immature Grans 0.03 10^3/uL (0.0-0.06); Absolute Basophil Count 0.06 10^3/uL (0.0-0.2); Absolute Eosinophil Count 0.19 10^3/uL (0.0-0.7); Absolute Monocyte Count 1.16 10^3/uL (0.1-0.8); Absolute Neutrophil Count 5.63 10^3/uL (1.2-6.7); Basophils % 0.8; Eosinophils % 2.4; HCT 42.6 % (40.0-50.0); HGB 14.8 g/dL (13.5-17.5); Immature Grans % 0.4; MCHC 34.7 % (32.0-36.0); MCV 92 fL (80-95); Monocytes % 14.9; Neutrophils % 72.5; Platelet Count 182 10^3/uL (130-400); RBC 4.62 10^6/uL (4.36-5.78); RDW 13.4 % (11.8-14.1); RDW-SD 44.9 fL; WBC 7.77 10^3/uL (4.4-10.8)
[2022-05-26 07:40] LABS: ALT 484 U/L (16-63); AST 227 U/L (15-37); Albumin 3.3 g/dL (3.4-5.0); Alkaline Phosphatase 239 U/L (46-116); BUN 14 mg/dL (7-18); Bilirubin, Direct 3.1 mg/dL (0.0-0.2); Bilirubin, Total 4.3 mg/dL (0.2-1.0); CREATININE 1.2 mg/dL (0.70-1.30); Calcium 9.2 mg/dL (8.5-10.1); Chloride 106 mmol/L (98-107); Estimated GFR 63.85 (mL/min/1.73m2); Glucose 101 mg/dL (74-106); Sodium 141 mmol/L (136-145); Total Protein 6.8 g/dL (6.4-8.2)
[2022-05-26 07:45] VITALS: BP 111/65; PULSE 66; RESP 14; TEMP 37.5; O2SAT 96
[2022-05-26] MEDS: amLODIPine 5 MG TAB PO (08:36)
[2022-05-26] MEDS: Docusate Sodium 100 MG CAP 200 MG PO (08:36)
[2022-05-26] MEDS: Lisinopril 10 MG TAB PO (08:36)
[2022-05-26] MEDS: Omeprazole 20 MG CAPCR 40 MG PO (08:36)
[2022-05-26] MEDS: Psyllium PKT 1 EACH PO (08:36)
--- NOTE | 2022-05-26 11:16 | PDOC.CMIN ---
- If Service Date Differs Date of service: 05/26/22 Time of Service: 11:16 Care Management Initial Assess REASON FOR HOSPITALIZATION:: Cholecystitis PAST MEDICAL HISTORY/PAST SURGICAL HISTORY:: All Active Problems. Cholecystitis (Acute). Aortic stenosis (Chronic). 2019-mild to moderate by echocardiogram, normal cardiac function. Colon polyps (Acute). Esophageal reflux (Acute). H.H.; duodenitis. Hemorrhoids (Acute). Hyperlipidemia (Acute 01/22/13). Overweight (Acute). Impaired fasting glucose (Acute). Gastrointestinal hemorrhage (Acute). due to internal hemorrhoids. 04/07. EGD: gastric polyps. Colon: diverticulosis. Gastroesophageal reflux disease with esophagitis (Acute). H.H.; duodenitis. Gastric polyps (Acute 04/27/16). Essential hypertension (Acute). Medical History. Anemia. 2019-secondary to GI bleed, resolved. Surgical History. Hemorrhoidal Banding. History of colonoscopy (~06/2019). 07/10 - tubular adenoma. History of umbilical hernia repair PREVIOUS FUNCTIONAL STATUS/SOCIAL/FAMILY SUPPORTS:: Rikki lives in [place] with his , Stefani. 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 He is active and independent at baseline. CURRENT FUNCTIONAL STATUS:: Rikki was sitting up in bed visiting with his , Stefani when CM met with him. He was pleasant and engaged in conversation easily with CM. He stated that he had seen the surgeon earlier this morning, but had not heard an update this afternoon, and was unsure of his discharge plan. CM spoke to MD, who reported that he will remain inpatient over the weekend, awaiting a down and back procedure on Sunday. CM provided this update, and expressed that the MD will see him in the morning with additional updates/information. CM will continue to follow. ADVANCE DIRECTIVES:: Not on file. Has patient been provided with info about the portal/API?: Yes Did the patient sign up for the portal?: Yes (active) CODE STATUS:: Full Code INSURANCE COVERAGE / FINANCIAL ISSUES:: [facility]/ [employer] CURRENT HOME/COMMUNITY SERVICES/EQUIPMENT:: None. PRIMARY CARE PHYSICIAN:: Arleth Portillo POTENTIAL DISCHARGE NEEDS:: Evaluations for further needs, follow up appointments. PATIENT/FAMILY EDUCATION NEEDS:: Review discharge instructions and limitations, discussion of self care needs including ask me three. ANTICIPATED BARRIERS TO DISCHARGE:: None identified. TRANSPORTATION:: Via private vehicle by family. PLAN:: Anticipate Rikki will return home once medically cleared. His will drive him home via private vehicle. He will follow up with his PCP and discharge plan of care. CM will continue to follow.
[2022-05-26] MEDS: Normal Saline Flush 10 ML SYR IVP (11:40)
[2022-05-26 12:09] LABS: Lab Add On Test DONE
[2022-05-26 12:27] LABS: C-Reactive Protein 4.16 mg/dL (0.0-0.3); Lipase 140 U/L (73-393)
--- NOTE | 2022-05-26 15:36 | PGE_ITS ---
Date of Service Date of service: 05/26/22 Time of Service: 12:30 Assessment and Plan Assessment and plan (1) Cholecystitis: Status: Acute Assessment and plan: Patient is on Zosyn (2) Aortic stenosis: Status: Chronic Assessment and plan: Mild to moderate on echo from 2019 (3) Esophageal reflux: Status: Acute Assessment and plan: Protonix (4) Hyperlipidemia: Status: Acute (5) Overweight: Status: Acute (6) Impaired fasting glucose: Status: Acute (7) Essential hypertension: Status: Acute (8) Gallstones: Status: Acute (9) Elevated bilirubin: Status: Acute (10) Abnormal MRI of abdomen: Status: Acute Assessment and plan: Stricture versus stone. Patient will go for MRCP possibly on Sunday depending on availability at [facility]. Continue supportive care over the weekend Subjective Subjective Interval history since last seen: Pt is doing well. no headaches. No CP or SOB. no productive cough. no dysuria. no leg pain or swelling. Exam Narrative Exam Narrative: PHYSICAL EXAM GENERAL APPEARANCE: Alert, healthy appearance, oriented, x 3,? in no acute distress HYDRATION: Well hydrated HEAD, EYES, EARS, NECK, THROAT: Head is normocephalic, pupils equal, round, re active to light and accommodation, ocular movement intact, sclera clear and no jaundice. ?Dentition intact. No sore throat.? LUNGS: normal respiration/normal chest excursion. ?Clear to auscultation bilaterally. ?No R/R/W ?HEART: Regular rate and rhythm. no murmurs EXTREMITY: No edema or cyanosis.? no leg pain, redness, swelling.? No IV infiltration ABDOMEN: minimal tenderness? Normal bowel sounds.? Objective Last Vital Signs Temp 37.5 C 05/26/22 07:45 Pulse 66 05/26/22 07:45 Resp 14 05/26/22 07:45 BP 111/65 05/26/22 07:45 Pulse Ox 96 05/26/22 07:45 Laboratory Results - last 24 hr 05/25/22 05/25/22 05/25/22 17:25 17:25 20:25 WBC 10.77 RBC 5.20 Hgb 16.2 Hct 47.2 MCV 91 MCH 31.2 MCHC 34.3 RDW 12.8 Plt Count 236 MPV 9.0 Immature Gran % 0.3 Neutrophils % 82.8 Lymphocytes % 5.8 Monocytes % 9.5 Eosinophils % 1.2 Basophils % 0.4 Nucleated RBC % 0.0 Absolute Neutrophils 8.93 H Absolute Lymphocytes 0.62 L Absolute Monocytes 1.02 H Absolute Eosinophils 0.13 Absolute Basophils 0.04 Sodium 137 Potassium 4.8 Chloride 101 Carbon Dioxide 28.1 Anion Gap 7.9 BUN 18 Creatinine 1.1 Est GFR (CKD-EPI 2020) 70.88 Glucose 133 H Calcium 10.2 H Magnesium 2.0 Total Bilirubin 3.5 H Conjugated Bilirubin AST 412 H ALT 622 H Alkaline Phosphatase 260 H Troponin I < 50 < 50 C-Reactive Protein Total Protein 8.0 Albumin 4.1 Lipase 182 Add-On Test Request 05/25/22 05/26/22 05/26/22 20:25 06:00 06:00 WBC 7.77 RBC 4.62 Hgb 14.8 Hct 42.6 MCV 92 MCH 32.0 MCHC 34.7 RDW 13.4 Plt Count 182 MPV 9.0 Immature Gran % 0.4 Neutrophils % 72.5 Lymphocytes % 9.0 Monocytes % 14.9 Eosinophils % 2.4 Basophils % 0.8 Nucleated RBC % 0.0 Absolute Neutrophils 5.63 Absolute Lymphocytes 0.70 L Absolute Monocytes 1.16 H Absolute Eosinophils 0.19 Absolute Basophils 0.06 Sodium 141 Potassium 4.0 Chloride 106 Carbon Dioxide 25.0 Anion Gap 10.0 BUN 14 Creatinine 1.2 Est GFR (CKD-EPI 2020) 63.85 Glucose 101 Calcium 9.2 Magnesium Total Bilirubin 4.3 H Conjugated Bilirubin 3.1 H AST 227 H ALT 484 H Alkaline Phosphatase 239 H Troponin I C-Reactive Protein Total Protein 6.8 Albumin 3.3 L Lipase 160 Add-On Test Request 05/26/22 05/26/22 06:05 06:05 WBC RBC Hgb Hct MCV MCH MCHC RDW Plt Count MPV Immature Gran % Neutrophils % Lymphocytes % Monocytes % Eosinophils % Basophils % Nucleated RBC % Absolute Neutrophils Absolute Lymphocytes Absolute Monocytes Absolute Eosinophils Absolute Basophils Sodium Potassium Chloride Carbon Dioxide Anion Gap BUN Creatinine Est GFR (CKD-EPI 2020) Glucose Calcium Magnesium Total Bilirubin Conjugated Bilirubin AST ALT Alkaline Phosphatase Troponin I C-Reactive Protein 4.16 H Total Protein Albumin Lipase 140 Add-On Test Request DONE PAWSS Have you Been Recently Intoxicated or Drunk Within the Last 30 days?: No Have you Ever Experienced Previous Episodes of Alcohol Withdrawal?: No Have you ever Experienced Withdrawal Seizures?: No Have you ever Experienced Delirium Tremens(DT)s?: No Have you ever undergone Alcohol Rehabilitation Treatment (i.e, inpt ot outpatient treatment programs)?: No Have you ever Experienced Blackouts?: No Have you ever Combined Alcohol with other Downers within the last 90 days?: No Have you ever Combined Alcohol with any other Substance of Abuse during the last 90 days?: No Positive Blood Alcohol level on Presentation? [PCS.BAL]: No Evidence of Increased Autonomic Activity (i.e. HR>120, tremor, sweating, agitation, nausea)?: No Result: 0
[2022-05-26] MEDS: Lactated Ringers 1,000 ML 75 ML IV (16:33)
[2022-05-26 18:53] VITALS: BP 125/76; PULSE 72; RESP 16; TEMP 37; O2SAT 95
[2022-05-26] MEDS: Enoxaparin 40 MG/0.4 ML SYR SC (21:36)
[2022-05-26 23:18] VITALS: BP 122/72; PULSE 78; RESP 16; TEMP 36.8; O2SAT 95
[2022-05-27] MEDS: Normal Saline Flush 10 ML SYR IVP ×3 (03:49→22:12)
[2022-05-27] MEDS: PIPERACILLIN/TAZO 3.375 GM in Normal Saline 50 ML IVPB ×4 (03:49→22:10)
[2022-05-27] MEDS: Acetaminophen 500 MG TAB 1000 MG PO ×3 (05:14→22:12)
[2022-05-27] MEDS: Lactated Ringers 1,000 ML 75 ML IV (06:40)
[2022-05-27 07:11] LABS: INR 1.1 (0.9-1.1); Prothrombin Time 10.6 sec (9.3-11.0)
[2022-05-27 07:31] LABS: ALT 305 U/L (16-63); AST 93 U/L (15-37); Albumin 2.9 g/dL (3.4-5.0); Alkaline Phosphatase 209 U/L (46-116); Anion Gap 9.5 mmol/L (3-11); BUN 17 mg/dL (7-18); Bilirubin, Total 2.2 mg/dL (0.2-1.0); CO2 25.5 mmol/L (21.0-32.0); CREATININE 1.1 mg/dL (0.70-1.30); Calcium 8.8 mg/dL (8.5-10.1); Chloride 107 mmol/L (98-107); Estimated GFR 70.88 (mL/min/1.73m2); Glucose 93 mg/dL (74-106); Lipase 234 U/L (73-393); Potassium 3.6 mmol/L (3.5-5.1); Sodium 142 mmol/L (136-145); Total Protein 6.3 g/dL (6.4-8.2)
[2022-05-27] MEDS: Pantoprazole 40 MG VIAL IVP (07:45)
[2022-05-27] MEDS: Psyllium PKT 1 EACH PO (07:45)
[2022-05-27 07:54] VITALS: BP 97/56; PULSE 57; RESP 16; TEMP 35.6; O2SAT 97
--- NOTE | 2022-05-27 10:03 | W.PM.PROGNOT ---
Date of Service Date of service: 05/27/22 Time of Service: 10:03 Assessment and Plan Assessment and plan (1) Cholecystitis: Status: Acute Assessment and plan: Patient is on Zosyn. LAst WBC count normal. Will continue until after the ERCP and then stop (2) Abnormal MRI of abdomen: Status: Acute Assessment and plan: Stricture versus stone. Patient will go for MRCP on Sunday. Needs to be there by 10 am Continue supportive care over the weekend. Will advance his diet to low fat. Saline lock IV Restart IV after midnight on Sunday Discussed MRCP findings with patient this morning as well as plan for Sunday. Once we know wether he has a stone or a stricture we can discuss next steps. If he has a stricture then possibly home on Sunday as long as he doesn't develop pancreatitis from the ERCP. If it was a stone will discuss inpatient vs outpatient Cholecystectomy (3) Elevated bilirubin: Status: Acute Assessment and plan: improving (4) Gallstones: Status: Acute (5) Aortic stenosis: Status: Chronic Assessment and plan: Mild to moderate on echo from 2019 Will need an echo prior to surgery (6) Esophageal reflux: Status: Acute Assessment and plan: Protonix (7) Hyperlipidemia: Status: Acute (8) Overweight: Status: Acute (9) Impaired fasting glucose: Status: Acute (10) Essential hypertension: Status: Acute Assessment and plan: on home Bp meds Subjective Subjective Interval history since last seen: Mr. Villaseñor is doing well. NO complaints. Tolerating clear liquids without pain. T. Bili has decreased from 4.2 to 2.2. Afebrile He is concerned about his urine being very dark. Explained that this is due to his elevated bilirubin not due to dehydration Exam Const General: cooperative, comfortable and no acute distress [facility] Head: normocephalic and atraumatic Resp Effort & Inspection: normal respiratory effort Auscultation: clear to auscultation bilaterally Cardio Rate: regular rate Rhythm: regular rhythm GI Palpation: soft and nontender Objective Last Vital Signs Temp 96.1 F L 05/27/22 07:54 Pulse 57 L 05/27/22 07:54 Resp 16 05/27/22 07:54 BP 97/56 L 05/27/22 07:54 Pulse Ox 97 05/27/22 07:54 Laboratory Results - last 24 hr 1105/26/22 05/27/22 06:05 06:05 06:14 PT INR Sodium 142 Potassium 3.6 Chloride 107 Carbon Dioxide 25.5 Anion Gap 9.5 BUN 17 Creatinine 1.1 Est GFR (CKD-EPI 2020) 70.88 Glucose 93 Calcium 8.8 Total Bilirubin 2.2 H AST 93 H ALT 305 H Alkaline Phosphatase 209 H C-Reactive Protein 4.16 H Total Protein 6.3 L Albumin 2.9 L Lipase 140 234 COVID-19 Source SARS-CoV-2 (PCR) Add-On Test Request DONE 05/27/22 05/27/22 06:14 09:05 PT 10.6 INR 1.1 Sodium Potassium Chloride Carbon Dioxide Anion Gap BUN Creatinine Est GFR (CKD-EPI 2020) Glucose Calcium Total Bilirubin AST ALT Alkaline Phosphatase C-Reactive Protein Total Protein Albumin Lipase COVID-19 Source Cancelled SARS-CoV-2 (PCR) Cancelled Add-On Test Request PAWSS Have you Been Recently Intoxicated or Drunk Within the Last 30 days?: No Have you Ever Experienced Previous Episodes of Alcohol Withdrawal?: No Have you ever Experienced Withdrawal Seizures?: No Have you ever Experienced Delirium Tremens(DT)s?: No Have you ever undergone Alcohol Rehabilitation Treatment (i.e, inpt ot outpatient treatment programs)?: No Have you ever Experienced Blackouts?: No Have you ever Combined Alcohol with other Downers within the last 90 days?: No Have you ever Combined Alcohol with any other Substance of Abuse during the last 90 days?: No Positive Blood Alcohol level on Presentation? [PCS.BAL]: No Evidence of Increased Autonomic Activity (i.e. HR>120, tremor, sweating, agitation, nausea)?: No Result: 0
[2022-05-27 10:09] LABS: Source Nasal/Nares
[2022-05-27 10:40] LABS: COVID-19 PCR Negative (Negative)
[2022-05-27 12:43] VITALS: BP 123/79; PULSE 61; RESP 16; TEMP 36.2; O2SAT 97
[2022-05-27 15:49] VITALS: BP 119/71; PULSE 60; RESP 16; TEMP 36.7; O2SAT 97
[2022-05-27] MEDS: Calcium Carbonate *TUMS* 500 MG CHEW 1000 MG PO (18:40)
[2022-05-27] MEDS: Enoxaparin 40 MG/0.4 ML SYR SC (22:10)
[2022-05-27] MEDS: diphenhydrAMINE 25 MG CAP PO (22:11)
[2022-05-27 22:59] VITALS: BP 133/77; PULSE 55; RESP 17; TEMP 36.8; O2SAT 94
[2022-05-28] MEDS: PIPERACILLIN/TAZO 3.375 GM in Normal Saline 50 ML IVPB ×4 (05:07→21:38)
[2022-05-28] MEDS: Normal Saline Flush 10 ML SYR IVP ×4 (05:07→21:35)
[2022-05-28] MEDS: Acetaminophen 500 MG TAB 1000 MG PO ×3 (05:08→21:35)
[2022-05-28 06:45] LABS: Abs Immature Grans 0.02 10^3/uL (0.0-0.06); Absolute Basophil Count 0.05 10^3/uL (0.0-0.2); Absolute Eosinophil Count 0.49 10^3/uL (0.0-0.7); Absolute Lymphocyte Count 1.19 10^3/uL (1.2-3.4); Absolute Neutrophil Count 2.42 10^3/uL (1.2-6.7); Eosinophils % 10.3; HCT 39.6 % (40.0-50.0); HGB 13.6 g/dL (13.5-17.5); Immature Grans % 0.4; Lymphocytes % 24.9; MCH 31.2 pg (27.0-33.0); MCHC 34.3 % (32.0-36.0); MCV 91 fL (80-95); MPV 9.1 fL (8.0-11.0); Monocytes % 12.6; Neutrophils % 50.8; Platelet Count 159 10^3/uL (130-400); RBC 4.36 10^6/uL (4.36-5.78); RDW 12.6 % (11.8-14.1); RDW-SD 41.9 fL; WBC 4.77 10^3/uL (4.4-10.8)
[2022-05-28 07:05] LABS: ALT 209 U/L (16-63); AST 50 U/L (15-37); Albumin 2.9 g/dL (3.4-5.0); Alkaline Phosphatase 196 U/L (46-116); Anion Gap 10.3 mmol/L (3-11); BUN 15 mg/dL (7-18); Bilirubin, Total 1.3 mg/dL (0.2-1.0); CO2 24.7 mmol/L (21.0-32.0); CREATININE 1.2 mg/dL (0.70-1.30); Calcium 8.4 mg/dL (8.5-10.1); Chloride 107 mmol/L (98-107); Estimated GFR 63.85 (mL/min/1.73m2); Glucose 88 mg/dL (74-106); Lipase 213 U/L (73-393); Potassium 3.6 mmol/L (3.5-5.1); Sodium 142 mmol/L (136-145); Total Protein 6.3 g/dL (6.4-8.2)
[2022-05-28 07:09] VITALS: BP 133/74; PULSE 58; RESP 17; TEMP 36.4; O2SAT 97
[2022-05-28] MEDS: Pantoprazole 40 MG VIAL IVP (07:58)
[2022-05-28] MEDS: Psyllium PKT 1 EACH PO (07:59)
[2022-05-28] MEDS: amLODIPine 5 MG TAB PO (07:59)
[2022-05-28] MEDS: Lisinopril 10 MG TAB PO (07:59)
--- NOTE | 2022-05-28 11:27 | W.PM.PROGNOT ---
Date of Service Date of service: 05/28/22 Time of Service: 11:27 Assessment and Plan Assessment and plan (1) Cholecystitis: Status: Acute Assessment and plan: Patient is on Zosyn. Last WBC count normal. Will continue until after the ERCP and then stop (2) Abnormal MRI of abdomen: Status: Acute Assessment and plan: Stricture versus stone. Patient will go for MRCP on Sunday. Needs to be there by 10 am Continue supportive care over the weekend. Will advance his diet to low fat. Saline lock IV Restart IV after midnight on Sunday Discussed MRCP findings with patient this morning as well as plan for Sunday. Once we know wether he has a stone or a stricture we can discuss next steps. If he has a stricture then possibly home on Sunday as long as he doesn't develop pancreatitis from the ERCP. If it was a stone will discuss inpatient vs outpatient Cholecystectomy (3) Elevated bilirubin: Status: Acute Assessment and plan: improving (4) Gallstones: Status: Acute (5) Aortic stenosis: Status: Chronic Assessment and plan: Mild to moderate aortic stenosis on echo from 2019 Will need an echo prior to surgery (6) Esophageal reflux: Status: Acute Assessment and plan: Protonix (7) Hyperlipidemia: Status: Acute (8) Overweight: Status: Acute (9) Impaired fasting glucose: Status: Acute (10) Essential hypertension: Status: Acute Assessment and plan: on home Bp meds Subjective Subjective Interval history since last seen: Mr. Villaseñor is doing well. He has no pain. He is tolerating a low fat diet. No fevers, no chest pain or SOB Exam Const General: cooperative, comfortable and no acute distress Orientation: alert and oriented x3 HENMT Head: normocephalic and atraumatic Resp Effort & Inspection: normal respiratory effort Auscultation: clear to auscultation bilaterally Cardio Rate: regular rate Rhythm: regular rhythm GI Inspection: normal to inspection Palpation: soft, no hepatosplenomegaly and nontender Objective Last Vital Signs Temp 97.5 F L 05/28/22 07:09 Pulse 58 L 05/28/22 07:09 Resp 17 05/28/22 07:09 BP 133/74 05/28/22 07:09 Pulse Ox 97 05/28/22 07:09 Laboratory Results - last 24 hr 05/28/22 05/28/22 06:23 06:23 WBC 4.77 RBC 4.36 Hgb 13.6 Hct 39.6 L MCV 91 MCH 31.2 MCHC 34.3 RDW 12.6 Plt Count 159 MPV 9.1 Immature Gran % 0.4 Neutrophils % 50.8 Lymphocytes % 24.9 Monocytes % 12.6 Eosinophils % 10.3 Basophils % 1.0 Nucleated RBC % 0.0 Absolute Neutrophils 2.42 Absolute Lymphocytes 1.19 L Absolute Monocytes 0.60 Absolute Eosinophils 0.49 Absolute Basophils 0.05 Sodium 142 Potassium 3.6 Chloride 107 Carbon Dioxide 24.7 Anion Gap 10.3 BUN 15 Creatinine 1.2 Est GFR (CKD-EPI 2020) 63.85 Glucose 88 Calcium 8.4 L Total Bilirubin 1.3 H AST 50 H ALT 209 H Alkaline Phosphatase 196 H Total Protein 6.3 L Albumin 2.9 L Lipase 213 PAWSS Have you Been Recently Intoxicated or Drunk Within the Last 30 days?: No Have you Ever Experienced Previous Episodes of Alcohol Withdrawal?: No Have you ever Experienced Withdrawal Seizures?: No Have you ever Experienced Delirium Tremens(DT)s?: No Have you ever undergone Alcohol Rehabilitation Treatment (i.e, inpt ot outpatient treatment programs)?: No Have you ever Experienced Blackouts?: No Have you ever Combined Alcohol with other Downers within the last 90 days?: No Have you ever Combined Alcohol with any other Substance of Abuse during the last 90 days?: No Positive Blood Alcohol level on Presentation? [PCS.BAL]: No Evidence of Increased Autonomic Activity (i.e. HR>120, tremor, sweating, agitation, nausea)?: No Result: 0
[2022-05-28 15:09] VITALS: BP 128/79; PULSE 58; RESP 17; TEMP 36.6; O2SAT 96
[2022-05-28] MEDS: diphenhydrAMINE 25 MG CAP PO (21:38)
[2022-05-28 22:29] VITALS: BP 116/57; PULSE 58; RESP 18; TEMP 36.7; O2SAT 95
[2022-05-28] MEDS: Lactated Ringers 1,000 ML 75 ML IV (23:50)
[2022-05-29] MEDS: PIPERACILLIN/TAZO 3.375 GM in Normal Saline 50 ML IVPB ×3 (03:52→21:35)
[2022-05-29 07:13] LABS: ALT 216 U/L (16-63); AST 85 U/L (15-37); Albumin 3.1 g/dL (3.4-5.0); Alkaline Phosphatase 176 U/L (46-116); Anion Gap 9.9 mmol/L (3-11); BUN 16 mg/dL (7-18); Bilirubin, Total 1.1 mg/dL (0.2-1.0); CO2 26.1 mmol/L (21.0-32.0); CREATININE 1.1 mg/dL (0.70-1.30); Calcium 8.6 mg/dL (8.5-10.1); Chloride 107 mmol/L (98-107); Estimated GFR 70.88 (mL/min/1.73m2); Glucose 86 mg/dL (74-106); Potassium 3.7 mmol/L (3.5-5.1); Sodium 143 mmol/L (136-145); Total Protein 6.5 g/dL (6.4-8.2)
[2022-05-29 07:23] VITALS: BP 148/81; PULSE 56; RESP 18; TEMP 36.4; O2SAT 98
--- NOTE | 2022-05-29 12:33 | CMPROGNOTE_ITS ---
- If Service Date Differs Date of service: 05/29/22 Time of Service: 12:33 Care Management Progress Note S/O: Rikki went to [facility] today for a down and back ERCP. He was transported via EMS, and will return after his procedure. CM will continue to follow. A: Rikki is a 72 year old male admitted to [facility] on 05/25/22 with cholecystitis. P: Anticipate Rikki will return home once medically cleared. His will drive him home via private vehicle. He will follow up with his PCP and discharge plan of care. CM will continue to follow.
[2022-05-29 13:04] VITALS: BP 144/79; PULSE 58; RESP 18; TEMP 36.7; O2SAT 97
--- NOTE | 2022-05-29 13:37 | W.PM.PROGNOT ---
Date of Service Date of service: 05/29/22 Time of Service: 13:37 Objective Last Vital Signs Temp 36.7 C 05/29/22 13:04 Pulse 58 L 05/29/22 13:04 Resp 18 05/29/22 13:04 BP 144/79 H 05/29/22 13:04 Pulse Ox 97 05/29/22 13:04 Laboratory Results - last 24 hr 05/29/22 06:20 Sodium 143 Potassium 3.7 Chloride 107 Carbon Dioxide 26.1 Anion Gap 9.9 BUN 16 Creatinine 1.1 Est GFR (CKD-EPI 2020) 70.88 Glucose 86 Calcium 8.6 Total Bilirubin 1.1 H AST 85 H ALT 216 H Alkaline Phosphatase 176 H Total Protein 6.5 Albumin 3.1 L PAWSS Have you Been Recently Intoxicated or Drunk Within the Last 30 days?: No Have you Ever Experienced Previous Episodes of Alcohol Withdrawal?: No Have you ever Experienced Withdrawal Seizures?: No Have you ever Experienced Delirium Tremens(DT)s?: No Have you ever undergone Alcohol Rehabilitation Treatment (i.e, inpt ot outpatient treatment programs)?: No Have you ever Experienced Blackouts?: No Have you ever Combined Alcohol with other Downers within the last 90 days?: No Have you ever Combined Alcohol with any other Substance of Abuse during the last 90 days?: No Positive Blood Alcohol level on Presentation? [PCS.BAL]: No Evidence of Increased Autonomic Activity (i.e. HR>120, tremor, sweating, agitation, nausea)?: No Result: 0
--- NOTE | 2022-05-29 14:22 | DI.US_ITS ---
APPROVED REPORT EXAM: Comprehensive 2D, Doppler, and color-flow Echocardiogram Patient Location: In-Patient Room/Bed: [address] Lay Out Worker: Marnie Kebede RDCS (AE) Indications: Aortic stenosis Other Information Study Quality: Adequate Conclusion Normal left ventricular wall thickness and chamber size. Estimated ejection fraction is 60%. Wall m otion is normal Normal right ventricular size and systolic function Both atria are normal in size Aortic valve is calcified and probably trileaflet. There is mild aortic stenosis. Peak gradient is 26, mean 14 mmHg. Calculated aortic valve area is 1.3 cm?? Mild mitral annular calcification. Mild mitral regurgitation Normal tricuspid valve with trace regurgitation. Right ventricular systolic pressure could not be es timated There has been no change compared to an echocardiogram from January 2022 Wall motion Left Ventricle The left ventricle is normal size. The left ventricular systolic function is normal. The left ventric ular ejection fraction is within the normal range. There is normal left ventricular wall thickness. T here is normal LV segmental wall motion. There is no ventricular septal defect visualized. LVEF is 60 %. Right Ventricle The right ventricle is normal size. The right ventricular systolic function is normal. Atria The left atrium size is normal. The right atrium size is normal. The interatrial septum is intact wit h no evidence for an atrial septal defect. Aortic Valve Aortic valve is calcified. Aortic valve is probably trileaflet. Mild aortic stenosis. Peak aortic ovidio ve gradient is 25.4mmHg. Highest mean aortic valve gradient is 12.8mmHg. Calculated BURT by the contin uity equation is1.3 cm2. No aortic regurgitation is present. Mitral Valve There is mitral annular calcification. No evidence of mitral valve stenosis. Mild mitral regurgitatio n. Tricuspid Valve The tricuspid valve is normal in structure. There is no tricuspid valve stenosis. Trace tricuspid reg urgitation. Unable to assess PA pressure. Pulmonic Valve The pulmonary valve is normal in structure. There is no pulmonic valvular stenosis. There is no pulmo александр valvular regurgitation. Great Vessels The aortic root is normal in size. The ascending aorta is normal in size. Aortic arch is normal in ca liber. IVC is normal in size and collapses >50% with inspiration. Pericardium There is no pericardial effusion. 2D Dimensions IVSD d PLAX 1.05 cm M: 0.6-1.2 LV Vol A2C d MOD 128.6 mL LVPW d PLAX 1.01 cm M: 0.6 - 1.2 LV Vol A4C d MOD 114.1 mL LVID d PLAX 4.69 cm M: 4.2 - 5.8 LA vol/ BSA A2C s A-L 15.7 mL/m2 LVDs 3.20 cm M: 2.5 - 4.0 LA vol/ BSA A4C s A-L 23.5 mL/m2 Ao Root d 2.79 cm M: 3.1 - 3.7 LA Vol/ BSA Biplane s A-L 20.7 mL/m2 RA Area A4C 13.82 cm2 LA Area A4C s MOD 17.25 cm2 RA Vol/ BSA A4C s A-L 18.4 mL/m2 LA Area A2C s MOD 13.08 cm2 Ao Asc Diam d 3.50 cm M: 2.6 - 3.4 LV EF A4C MOD 59.0 % LV EF Teichholz 59.1 % LV EF A2C MOD 60.3 % LVEF (Fontanez's) 59.53 % M: 52 - 72 LV EF Biplane MOD 59.5 % LV Volume 92.63 mL M: 62 - 150 SV 73.79 mL LV Volume Index 45.85 mL/m2 M: 34 - 74 SV Index 36.49 mL/m2 LV Vol Biplane MOD 124.0 mL FS 31.25 % M-Mode TAPSE 2.27 cm (M/F) >1.7 LV Diastology MV E' medial 0.078 (>0.07 m/s) E/A Ratio 0.7 LV E/e MED 7.50 (<14) MV E Vmax 0.59 (0.4-1.3 m/s) MV E' lateral 0.086 (>0.1 m/s) MV A Vmax 0.80 (0.4-1.3 m/s) LV E/e LAT 6.80 (<14) MV E/A Ratio 0.73 MV E/E' medial 7.54 MV E/E' lateral 6.83 Aortic Valve LVOT Area 3.05 cm2 AoV Area Vmax 1.13 cm2 LVOT Vmax 0.93 m/s AoV Area/ BSA (Vmax) 0.56 cm2/m2 LVOT Mean Regan. 0.62 m/s BURT Mean Regan. 1.15 cm2 LVOT Peak Grad 3.5 mmHg BURT Mean Regan. Index 0.57 cm2/m2 LVOT Mean Grad 1.8 mmHg LVOT VTI 0.227 m LVOT Diam s 1.95 cm AoV Vmax 2.52 m/s Velocity Ratio 0.36 AoV Mean Regan. 1.64 m/s AoV Peak Grad 25.4 mmHg LVOT SV 69.35 mL AoV Mean Grad 12.8 mmHg AoV VTI 0.547 m AoV Area VTI 1.27 cm2 AoV Area/ BSA (VTI) 0.63 cm/m2 Mitral Valve MV DT 255 (160-240 msec) MV PHT 74 msec MV Area PHT 2.98 cm2 MV VTI 0.330 m MV Area VTI 2.10 (4.0-6.0 cm2) Pulmonary Valve PV Vmax 1.45 (0.5-1.5 m/s) RVOT Peak Gr. 1.93 mmHg PV Peak Grad 8.5 mmHg RVOT Mean Gr. 1.05 mmHg PV Mean Grad 4.1 mmHg RVOT VTI 0.166 m PV VTI 0.304 m RVOT Vmax 0.69 m/s
[2022-05-29 15:25] VITALS: BP 151/83; PULSE 58; RESP 20; TEMP 37.2; O2SAT 98
[2022-05-29] MEDS: Acetaminophen 500 MG TAB 1000 MG PO ×2 (15:26→21:35)
[2022-05-29] MEDS: Normal Saline Flush 10 ML SYR IVP (15:27)
--- NOTE | 2022-05-29 22:21 | PGE_ITS ---
Date of Service Date of service: 05/29/22 Time of Service: 01:30 Assessment and Plan Assessment and plan (1) Choledocholithiasis with acute cholecystitis with obstruction: Status: Acute (2) Abnormal MRI of abdomen: Status: Acute (3) Elevated bilirubin: Status: Acute (4) Gallstones: Status: Acute (5) Cholecystitis: Status: Acute (6) Aortic stenosis: Status: Chronic (7) Esophageal reflux: Status: Acute (8) Hemorrhoids: Status: Acute (9) Hyperlipidemia: Status: Acute (10) Overweight: Status: Acute Subjective Subjective Interval history since last seen: Patient has returned from [facility]. He is currently resting comfortably. I did review the notes from [facility]. He had a ERCP with sphincterotomy. He did have a stone that was removed. He did not have a stent placed. He will also be having a echo later on today. He can start on clears today and we will see how he feels tomorrow. Labs will be also ordered for tomorrow as well. Continue with supportive care Objective Last Vital Signs Temp 37.2 C 05/29/22 15:25 Pulse 58 L 05/29/22 15:25 Resp 20 05/29/22 15:25 BP 151/83 H 05/29/22 15:25 Pulse Ox 98 05/29/22 15:25 Laboratory Results - last 24 hr 05/29/22 06:20 Sodium 143 Potassium 3.7 Chloride 107 Carbon Dioxide 26.1 Anion Gap 9.9 BUN 16 Creatinine 1.1 Est GFR (CKD-EPI 2020) 70.88 Glucose 86 Calcium 8.6 Total Bilirubin 1.1 H AST 85 H ALT 216 H Alkaline Phosphatase 176 H Total Protein 6.5 Albumin 3.1 L PAWSS Have you Been Recently Intoxicated or Drunk Within the Last 30 days?: No Have you Ever Experienced Previous Episodes of Alcohol Withdrawal?: No Have you ever Experienced Withdrawal Seizures?: No Have you ever Experienced Delirium Tremens(DT)s?: No Have you ever undergone Alcohol Rehabilitation Treatment (i.e, inpt ot outpatient treatment programs)?: No Have you ever Experienced Blackouts?: No Have you ever Combined Alcohol with other Downers within the last 90 days?: No Have you ever Combined Alcohol with any other Substance of Abuse during the last 90 days?: No Positive Blood Alcohol level on Presentation? [PCS.BAL]: No Evidence of Increased Autonomic Activity (i.e. HR>120, tremor, sweating, agitation, nausea)?: No Result: 0
[2022-05-29 23:02] VITALS: BP 118/47; PULSE 57; RESP 17; TEMP 36.5; O2SAT 97
[2022-05-29] MEDS: Lactated Ringers 1,000 ML 75 ML IV (23:24)
[2022-05-30] MEDS: PIPERACILLIN/TAZO 3.375 GM in Normal Saline 50 ML IVPB ×2 (03:14→09:46)
[2022-05-30] MEDS: Acetaminophen 500 MG TAB 1000 MG PO (06:15)
[2022-05-30 06:58] LABS: ALT 288 U/L (16-63); AST 143 U/L (15-37); Albumin 2.9 g/dL (3.4-5.0); Alkaline Phosphatase 154 U/L (46-116); BUN 15 mg/dL (7-18); Bilirubin, Total 1.1 mg/dL (0.2-1.0); Calcium 8.4 mg/dL (8.5-10.1); Chloride 106 mmol/L (98-107); Estimated GFR 79.47 (mL/min/1.73m2); Glucose 89 mg/dL (74-106); Lipase 138 U/L (73-393); Potassium 3.6 mmol/L (3.5-5.1); Sodium 141 mmol/L (136-145); Total Protein 6.1 g/dL (6.4-8.2)
[2022-05-30] MEDS: Lisinopril 10 MG TAB PO (07:38)
[2022-05-30] MEDS: amLODIPine 5 MG TAB PO (07:38)
[2022-05-30] MEDS: Pantoprazole 40 MG VIAL IVP (07:39)
[2022-05-30] MEDS: Normal Saline Flush 10 ML SYR IVP ×2 (07:39→09:47)
[2022-05-30 08:05] VITALS: BP 149/81; PULSE 53; RESP 18; TEMP 36.4; O2SAT 97
--- NOTE | 2022-05-30 08:14 | CMPROGNOTE_ITS ---
- If Service Date Differs Date of service: 05/30/22 Time of Service: 08:15 Care Management Progress Note S/O: Rikki Kerns: Rikki is a 72 year old male admitted to [facility] on 05/25/22 with cholecystitis. P: Anticipate Rikki will return home once medically cleared. His will drive him home via private vehicle. He will follow up with his PCP and discharge plan of care. CM will continue to follow.
--- NOTE | 2022-05-30 10:21 | W.PM.PROGNOT ---
Date of Service Date of service: 05/30/22 Time of Service: 10:21 Assessment and Plan Assessment and plan (1) Choledocholithiasis with acute cholecystitis with obstruction: Status: Acute Assessment and plan: Status post ERCP and stent sphincterotomy and duct clearing of stones. No stent (2) Cholecystitis: Status: Acute (3) Gallstones: Status: Acute Assessment and plan: Plan: The patient will be scheduled for laparoscopic cholecystectomy. The alternatives to surgery, risks, complications, and the possible need to convert to open cholecystectomy were discussed. Also bleeding, infection, pneumonia, blood clots, complications of anesthesia, damage to bowel, bladder, blood vessels, or bile ducts, liver, need for blood transfusions. Also: chronic pain, chronic diarrhea, reoccurrence of signs and symptoms, port site hernias, adhesions. All questions were answered and the patient elected to proceed with surgery. Also d/w pt dietary restrictions and warning signs of when to go to ER. Georgi frost with Dr. Eden on 06/07 Reviewed preop information with patient Patient was given information on low-fat diet. Hopefully DC home after lunch. (4) Aortic stenosis: Status: Chronic Assessment and plan: Conclusion Normal left ventricular wall thickness and chamber size.? Estimated ejection fraction is 60%.? Wall motion is normal Normal right ventricular size and systolic function Both atria are normal in size Aortic valve is calcified and probably trileaflet.? There is mild aortic stenosis.? Peak gradient is 26, mean 14 mmHg.? Calculated aortic valve area is 1.3 cm?? Mild mitral annular calcification.? Mild mitral regurgitation Normal tricuspid valve with trace regurgitation.? Right ventricular systolic pressure could not be estimated There has been no change compared to an echocardiogram from January 2022 (5) Esophageal reflux: Status: Acute (6) Hemorrhoids: Status: Acute (7) Hyperlipidemia: Status: Acute (8) Overweight: Status: Acute (9) Impaired fasting glucose: Status: Acute (10) Essential hypertension: Status: Acute Subjective Subjective Interval history since last seen: Pt is doing well. no headaches. No CP or SOB. no productive cough. no dysuria. no leg pain or swelling. He has a mild sore throat. No nausea. No abdominal pain. He is hungry and would like to eat. Exam Narrative Exam Narrative: PHYSICAL EXAM GENERAL APPEARANCE: Alert, healthy appearance, oriented, x 3,? in no acute distress HEAD, EYES, EARS, NECK, THROAT: Head is normocephalic, pupils equal, round, reactive to light and accommodation, ocular movement intact, sclera clear and no jaundice. ?Dentition intact. + sore throat.? LUNGS: normal respiration/normal chest excursion. ?Clear to auscultation bilaterally. ?No R/R/W ?HEART: Regular rate and rhythm. Holosystolic murmur consistent with aortic stenosis EXTREMITY: No edema or cyanosis.? no leg pain, redness, swelling.? No IV infiltration ABDOMEN: soft and non-tender to palpation.? Normal bowel sounds.? No hernias.? No organomegaly. Objective Last Vital Signs Temp 36.4 C L 05/30/22 08:05 Pulse 53 L 05/30/22 08:05 Resp 18 05/30/22 08:05 BP 149/81 H 05/30/22 08:05 Pulse Ox 97 05/30/22 08:05 Laboratory Results - last 24 hr 05/30/22 06:22 Sodium 141 Potassium 3.6 Chloride 106 Carbon Dioxide 26.0 Anion Gap 9.0 BUN 15 Creatinine 1.0 Est GFR (CKD-EPI 2020) 79.47 Glucose 89 Calcium 8.4 L Total Bilirubin 1.1 H AST 143 H ALT 288 H Alkaline Phosphatase 154 H Total Protein 6.1 L Albumin 2.9 L Lipase 138 PAWSS Have you Been Recently Intoxicated or Drunk Within the Last 30 days?: No Have you Ever Experienced Previous Episodes of Alcohol Withdrawal?: No Have you ever Experienced Withdrawal Seizures?: No Have you ever Experienced Delirium Tremens(DT)s?: No Have you ever undergone Alcohol Rehabilitation Treatment (i.e, inpt ot outpatient treatment programs)?: No Have you ever Experienced Blackouts?: No Have you ever Combined Alcohol with other Downers within the last 90 days?: No Have you ever Combined Alcohol with any other Substance of Abuse during the last 90 days?: No Positive Blood Alcohol level on Presentation? [PCS.BAL]: No Evidence of Increased Autonomic Activity (i.e. HR>120, tremor, sweating, agitation, nausea)?: No Result: 0
--- NOTE | 2022-05-30 13:11 | DSE_ITS ---
Date of service: 05/30/22 Time of Service: 13:11 DS: Diagnosis Discharge Diagnosis (1) Choledocholithiasis with acute cholecystitis with obstruction: Status: Acute (2) Cholecystitis: Status: Acute (3) Gallstones: Status: Acute (4) Aortic stenosis: Status: Chronic (5) Esophageal reflux: Status: Acute (6) Hyperlipidemia: Status: Acute (7) Overweight: Status: Acute (8) Impaired fasting glucose: Status: Acute (9) Essential hypertension: Status: Acute Discharge Plan Disposition Patient Disposition: HOME Condition: Stable Discharge Details Reason For Visit: Cholecystitis Admit Date/Time: 05/25/22 19:54 Admit Provider: Javier Nava Attending Provider: Javier Nava Primary Care Provider: Arleth Portillo Hospital Course Hospital Course: See addendum Home Meds and New Rx's Prescriptions: No Action polysaccharide iron complex 150 mg iron capsule 150 mg PO DAILY Qty: 90 6RF Rx Instructions: avoid dairy/calcium-containing products and/or antacids for at least 2 hrs before and after dose ibuprofen 200 MG capsule 400 mg PO PRN flaxseed oil 1,000 MG capsule 1,000 mg PO DAILY docusate sodium [Colace] 100 MG capsule 200 mg PO DAILY turmeric root extract 500 MG capsule 500 mg PO DAILY amlodipine 5 mg tablet 5 mg PO DAILY Qty: 90 4RF lisinopril 10 mg tablet 10 mg PO DAILY Qty: 90 3RF omeprazole 40 mg capsule,delayed release(DR/EC) 40 mg PO DAILY Qty: 90 3RF Discharge Instructions Additional Instructions: Surgery is scheduled with Dr. Eden on 06/07. Nothing to eat or drink after midnight The hospital will call you the day before the surgery to advise you at what time to arrive at the hospital Shower with Hibiclens soap the morning of your surgery You will need to have someone drive you home from the hospital Please stop all supplements and vitamins No aspirin/ibuprofen or aspirin or NSAIDs for 7 days before surgery See dietary restrictions below No lifting over 20 pounds. Rest Gargle w/salt water as needed for sore throat MiraLAX as needed for constipation See postop orders below It's helpful to know a little background: The gallbladder collects bile, a fluid that is produced by the liver, and releases it when you eat to aid the breakdown and absorption of fat. Between meals, bile collects in the gallbladder and is concentrated. When the gallbladder is removed, bile is less concentrated and it drains continuously into the intestine. This affects digestion of fat and fat-soluble vitamins. How much of a problem it is varies from person to person. With time, the body often adjusts and becomes better at digesting fatty foods. The amount of fat eaten at one time also factors into the equation. Smaller amounts of fat are easier to digest. On the other hand, large amounts can remain undigested and cause gas, bloating and diarrhea. ? Eat smaller, more frequent meals. This may ensure a better mix with available bile. Include small amounts of lean protein, such as poultry, fish and nonfat dairy, at every meal, along with vegetables, fruit and whole grains. ? Go easy on fat. Avoid high-fat foods, fried and greasy foods, and fatty sauces and gravies. Instead, choose nonfat or low-fat foods. Read labels and look for foods with 3 grams of fat or less a serving. ? Foods to Avoid While your body adjusts, it's a good idea to avoid high-fat foods for a few weeks after having gallbladder surgery. High-fat foods include: ? Foods that are fried, like Turkmen fries and potato chips ? High-fat meats, such as inman, bologna, sausage, ground beef, and ribs, pork products ? High-fat dairy products, such as cheese, ice cream, cream, whole milk, and sour cream ? Pizza ? Foods made with lard or butter ? Creamy soups or sauces ? Meat gravies ? Chocolate ? Oils, such as palm and coconut oil ? Skin of chicken or turkey ?? Nuts and nut butters ?? Avocadoes Care after Gallbladder Surgery -Pain control: ?For the first 72 hours after surgery, take you pain meds continuously and not just when you have pain.?? Alternate Tylenol 1000mg by mouth every 8 hours, and Ibuprofen 600mg every 6 hours.? Make sure you take ibuprofen with food and not on an empty stomach.? ??Use the tramadol for breakthrough pain- pain that is greater than a 7. ?- Use ICE! Ice really helps to keep the swelling down, and swelling causes pain. ??Twenty minutes on, and then off, continuously for the first 72hours.? After the first 72hrs, you can just use the Tylenol, ibuprofen or Celebrex, and ice, ?when you have pain.?? If you are taking narcotic pain medication, follow the instructions on the label and do not drive. Pain medications can make you very constipated. Make sure you are moving your bowels daily. If not, take Miralax, milk of magnesia or magnesium citrate.? - Anesthesia makes you very constipated.? Take a dose of milk of magnesia the morning after surgery. ? Use an ice bag for the first 72 hours. This helps to decrease swelling, which causes pain. It is normal to be more sore/painful and swollen towards the end of the day and first thing in the morning. ? Gallbladder surgery can make you very nauseated; use Zofran for nausea, for the first 24 hours. The nausea generally stops after 24 hours. ? Use milk of magnesia or prune juice to prevent constipation (this is a particular side effect of pain medication and anesthesia). Do not allow yourself to become constipated. ? Avoid fatty or greasy foods; introduce these slowly, with care, after about 1 month. High-fat foods include: ? Foods that are fried, like Turkmen fries and potato chips ? High-fat meats, such as inman, bologna, sausage, ground beef, and ribs, pork products ? High-fat dairy products, such as cheese, ice cream, cream, whole milk, and sour cream ? Pizza ? Foods made with lard or butter ? Creamy soups or sauces ? Meat gravies ? Chocolate ? Oils, such as palm and coconut oil ? Skin of chicken or turkey ? Nuts and nut butters ? Avacadoes ? Start out eating very small, bland amounts of food. Do not take pain pills on an empty stomach. - You will notice purple discoloration around the incisions.? This is the ?skin glue?.? This will wear off on its own.? It is OK to shower after 24hrs.? You do not need to cover the incisions. -You should walk frequently, gradually, increasing the distance. You may climb stairs, just go slowly. ? Do not go swimming or sit in a hot tub for two weeks. ? There are no stitches to remove. ? Do not drive your car x72hrs and then only if you have no pain and can move freely. Do not drive if you are taking pain narcotic pain medications. ? You may resume sexual activity whenever pain and soreness subside, usually in 2 weeks. ? Do no lift anything over 5 lbs. for two weeks. ? You may return to work in one week, or when you feel able, provided you do not have to do any heavy lifting or prolonged standing. ? Stand Alone Forms: Nursing Discharge Form Referrals: Edita Eden MD [ [facility] STAFF PHYSICIAN] - Activity:: See above Equipment/Supplies:: No Equipment Needed Diet:: Low-fat /see above Discharge Orders Discharge Orders: Discharge Order (Routine); Ordered 05/30/22 Ordered By: Kimberley Harry DS: Summary Time Spent with Patient providing and/or coordinating discharge services: Greater than 30 minutes Status at Discharge Functional status at discharge: independent ambulation Overall status at discharge: patient is progressing back to baseline Mental Status: mental status grossly normal Speech and Movement: speech and movement normal Mood: congruent mood Affect: normal affect Exam Psych Mental Status: mental status grossly normal Speech and Movement: speech and movement normal Mood: congruent mood Affect: normal affect DS: Data Vitals/I&O Vitals and I&O: Vital Signs Temperature 36.4 C L 05/30/22 08:05 Temperature Source Tympanic 05/30/22 08:05 Pulse 53 L 05/30/22 08:05 Pulse Rhythm Regular 05/30/22 07:00 Respiratory Rate 18 05/30/22 08:05 Respiratory Effort Non-Labored 05/30/22 07:00 Respiratory Depth Normal 05/30/22 07:00 Respiratory Pattern Normal 05/30/22 07:00 Blood Pressure 149/81 H 05/30/22 08:05 Pulse Oximetry 97 05/30/22 08:05 Oxygen Delivery Method Room Air 05/30/22 08:05 Oxygen Flow Rate 0 05/30/22 08:05 Pain Level 0 05/30/22 08:05 Comment 05/27/22 07:54 Intake & Output 05/29/22 05/30/22 05/30/22 23:59 11:59 23:59 Intake Total 487.50 / 1270.00 905 / 905 Output Total 370 / 495 200 / 200 Balance 117.50 / 775.00 705 / 705 Intake: IV 387.50 / 1170.00 905 / 905 Oral 100 / 100 Output: Urine 370 / 495 200 / 200 Other: Urine Color Dark Sally Dark Sally Urine Appearance Clear Clear Urine Odor Normal Comment pT goes to the bathroom indpendently. pT goes to the bathroom independently. Voiding Methods Urinal Toilet Toilet Data Completed and Pending Labs on day of discharge: Labs from last 24 hours 05/30/22 06:22 Sodium 141 Potassium 3.6 Chloride 106 Carbon Dioxide 26.0 Anion Gap 9.0 BUN 15 Creatinine 1.0 Est GFR (CKD-EPI 2020) 79.47 Glucose 89 Calcium 8.4 L Total Bilirubin 1.1 H AST 143 H ALT 288 H Alkaline Phosphatase 154 H Total Protein 6.1 L Albumin 2.9 L Lipase 138 PFSH All Active Problems (Updated 05/29/22 @ 22:23 by Kimberley Harry DO) Choledocholithiasis with acute cholecystitis with obstruction (Acute) Abnormal MRI of abdomen (Acute) Elevated bilirubin (Acute) Gallstones (Acute) Cholecystitis (Acute) Aortic stenosis (Chronic) 2018-mild to moderate by echocardiogram, normal cardiac function Colon polyps (Acute) Esophageal reflux (Acute) H.H.; duodenitis Hemorrhoids (Acute) Hyperlipidemia (Acute 01/22/13) Overweight (Acute) Impaired fasting glucose (Acute) Gastrointestinal hemorrhage (Acute) due to internal hemorrhoids. 04/07 EGD: gastric polyps Colon: diverticulosis Gastroesophageal reflux disease with esophagitis (Acute) H.H.; duodenitis Gastric polyps (Acute 04/27/16) Essential hypertension (Acute) Medical History Anemia 2019-secondary to GI bleed, resolved Surgical History Hemorrhoidal Banding History of colonoscopy (~06/2019) 07/10 - tubular adenoma. History of umbilical hernia repair Family History Mother Diabetes Essential hypertension Heart disease Hyperlipidemia Breast cancer Father Diabetes Essential hypertension Heart disease Sister Breast cancer Brother Hyperlipidemia Brother , 6 months old CF (cystic fibrosis) Brother CF (cystic fibrosis) Brother CF (cystic fibrosis) Maternal Grandfather No problems noted. Paternal Grandfather Diabetes Maternal Grandmother No problems noted. Paternal Grandmother No problems noted. Son Depression Daughter No problems noted. 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 Pets and animals: Yes Pets and animals: cat(s) Sexually active: Yes Do you think of yourself as: straight/heterosexual Current gender identity: male What is your relationship status?: How often do you talk on the phone with friends or family?: three or more times per week How often do you get together with friends or relatives?: three or more times per week How often do you attend sabianist or mu-ism services?: 1-3 times per year Do you belong to any clubs or organized social groups?: yes Panel score (0-1 are the most socially isolated patients): 3 What type of physical activity do you participate in: walking Duration: < 15 minutes/day Frequency: daily Ayse/Gnosticism: Buddhism Special ayse needs: No Seatbelt use: sometimes Helmet use: Yes Helmet use: always Drive intox or ride w/intox construction driver: No Do you feel safe at home: Yes Do you feel safe in your relationship?: Yes
--- NOTE | 2022-05-30 14:21 | PDOC.CMDIS ---
- If Service Date Differs Date of service: 05/30/22 Time of Service: 14:21 LACE Index Scoring Tool - Questions: Length of Stay (in days): 4 - 6 Acuity (Admit via E.D.?): Yes E.D. Visits: 1 - Answers: Total Score: 8 Risk of Readmission: Low Risk Care Management Discharge Reason for Hospitalization: Cholecystitis Discharge Plan: Rikki will return home with no new services. His will drive him home via private vehicle and he will follow up with his PCP and discharge plan of care. Patient/Family Education Needs: Review discharge instructions and limitations, activity, diet and discussion of self care needs including ask me three.
== END 2022-05-30 14:26 | disposition home or self-care (01) | DRG 446 ==
LOC: ER 20:06 → MS 21:07
PROVIDERS: Surgery; Admitting Provider Surgery; Emergency Provider Registered Nurse Emergency; PCP Family Medicine; Visit Provider Surgery
DX: K80.41 Calculus of bile duct with cholecystitis, unspecified, with obstruction (principal); K64.8 Other hemorrhoids; E78.5 Hyperlipidemia, unspecified; R73.01 Impaired fasting glucose; K21.9 Gastro-esophageal reflux disease without esophagitis; I10 Essential (primary) hypertension; I35.0 Nonrheumatic aortic (valve) stenosis; E66.3 Overweight; Z68.29 Body mass index [BMI] 29.0-29.9, adult
CPT/HCPCS: 36415; 80053; 80076; 83690; 87635; 90662; 93005; 93306; 96361; 96374; 96375; 99222; 99231; 99232; 99239; 99285; J1650; 74177; 74181; 83735; 84484; 85025; 85610; 86140; 93010; J2405; J2543; J3490

== ENCOUNTER 2022-06-07 07:27 | Day surgery (SDC) | payer MEDICARE, SELFPAY ==
[2022-06-07] VITALS (9 sets, daily range): BP systolic 118–154; BP diastolic 69–85; PULSE 54–79; RESP 13–19; TEMP 36.3–36.7; O2SAT 93–99; BMI 29.5
--- NOTE | 2022-06-07 06:37 | HPE_ITS ---
Date of service: 06/07/22 Time of Service: 08:39 Assessment and Plan Assessment and plan (1) Cholelithiasis: Status: Acute Assessment and plan: Rikki is a pleasant 72-year-old gentleman who comes in today for laparoscopic cholecystectomy. He underwent an ERCP with stone removal last week at [facility]. We discussed the procedure in detail as well as the risks and the benefits. We reviewed the complications. Risks, benefits, complications were reviewed with the patient in the office. Complications include but are not limited to bleeding, infection, injury to stomach, small bowel and large bowel, injury to the pancreas, injury to the common bile duct necessitating drainage and referral to tertiary center for repair, bile leak, adverse reactions to the medications, complications of intubation including a sore throat or injury to the uvula, NM, stroke and even . Questions were entertained and answered to her satisfaction and she wished to proceed. No guarantees were given or impl ied. Proceed with laparoscopic cholecystectomy. (2) Cholecystitis: Status: Acute History of Present Illness Narrative: Rikki is back today to undergo laparoscopic Cholecystectomy. He was admitted resently with elevated LFT's and RUQ pain. MRCP showed a stricture vs stone in his CBD. He went [place] [facility] and a small stone was removed. He was discharged to home the next day. He has done well since discharge. He has not had any recurrence of his pain. He has been eating a low fat diet without N/V or pain. Review of Systems All systems reviewed & are unremarkable except as noted in HPI and below PFSH All Active Problems Cholelithiasis (Acute) Choledocholithiasis with acute cholecystitis with obstruction (Acute) Gallstones (Acute) Cholecystitis (Acute) Aortic stenosis (Chronic) 2019-mild to moderate by echocardiogram, normal cardiac function Colon polyps (Acute) Esophageal reflux (Acute) H.H.; duodenitis Hyperlipidemia (Acute 01/22/13) Impaired fasting glucose (Acute) Gastrointestinal hemorrhage (Acute) due to internal hemorrhoids. 04/07 EGD: gastric polyps Colon: diverticulosis Gastroesophageal reflux disease with esophagitis (Acute) H.H.; duodenitis Gastric polyps (Acute 04/27/16) Essential hypertension (Acute) Medical History Anemia 2019-secondary to GI bleed, resolved Hemorrhoids Overweight Surgical History Hemorrhoidal Banding History of colonoscopy (~06/2019) 07/10 - tubular adenoma. History of umbilical hernia repair Family History Mother Diabetes Essential hypertension Heart disease Hyperlipidemia Breast cancer Father Diabetes Essential hypertension Heart disease Sister Breast cancer Brother Hyperlipidemia Brother , 6 months old CF (cystic fibrosis) Brother CF (cystic fibrosis) Brother CF (cystic fibrosis) Maternal Grandfather No problems noted. Paternal Grandfather Diabetes Maternal Grandmother No problems noted. Paternal Grandmother No problems noted. Son Depression Daughter No problems noted. 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 Pets and animals: Yes Pets and animals: cat(s) Sexually active: Yes Do you think of yourself as: straight/heterosexual Current gender identity: male What is your relationship status?: How often do you talk on the phone with friends or family?: three or more times per week How often do you get together with friends or relatives?: three or more times per week How often do you attend voodoo or islam services?: 1-3 times per year Do you belong to any clubs or organized social groups?: yes Panel score (0-1 are the most socially isolated patients): 3 What type of physical activity do you participate in: walking Duration: < 15 minutes/day Frequency: daily Ayse/Jehovah'S Witness: Episcopalian Special ayse needs: No Seatbelt use: sometimes Helmet use: Yes Helmet use: always Drive intox or ride w/intox commercial driver: No Do you feel safe at home: Yes Do you feel safe in your relationship?: Yes Meds Allergies and Home Medications Allergies Allergy/AdvReac Type Severity Reaction Status Date / Time No Known Allergies Allergy Verified 06/07/22 07:48 Home Medications Medication Instructions Recorded Confirmed Type docusate sodium 100 mg capsule 200 mg PO DAILY 12/19/12 06/07/22 History (Colace) flaxseed oil 1,000 mg capsule 1,000 mg PO DAILY 12/19/12 06/07/22 History ibuprofen 200 mg capsule 400 mg PO PRN 12/19/12 06/07/22 History turmeric root extract 500 mg 500 mg PO DAILY 04/16/15 06/07/22 History capsule polysaccharide iron complex 150 mg 150 mg PO DAILY #90 caps 06/09/19 06/07/22 Rx iron capsule amlodipine 5 mg tablet 5 mg PO DAILY #90 tab-caps 05/22/21 06/07/22 Rx lisinopril 10 mg tablet 10 mg PO DAILY #90 tabs 05/04/22 06/07/22 Rx omeprazole 40 mg capsule,delayed 40 mg PO DAILY #90 tab-caps 05/24/22 06/07/22 Rx release Exam Const General: cooperative, comfortable and no acute distress Orientation: alert and oriented x3 HENMT Head: normocephalic and atraumatic Resp Effort & Inspection: normal respiratory effort Auscultation: clear to auscultation bilaterally Cardio Rate: regular rate Rhythm: regular rhythm GI Inspection: normal to inspection Palpation: soft, no hepatosplenomegaly and nontender Auscultation: normal bowel sounds
--- NOTE | 2022-06-07 06:43 | W.PM.OP ---
Date of service: 06/07/22 Time of Service: 09:30 Operative Note Operative Note DATE OF PROCEDURE: 06/07/22 PRE-OP DIAGNOSIS: cholecystitis POST-OP DIAGNOSIS: same PROCEDURE: Laparoscopic Cholecystectomy SURGEON: Edita Eden HAT [employer]ISH[employer] PREPARER: Rosanna Dugan ANESTHESIA TYPE: Local By Surgeon and General LMA/ETT Refer to Anesthesia Record ESTIMATED BLOOD LOSS: 50 PATHOLOGY: other (Gallbladder) COMPLICATIONS: None Patient was transported to: PACU Patient's condition: stable Indications: Rikki is a pleasant 72-year-old gentleman who comes in today for laparoscopic cholecystectomy. He underwent an ERCP with stone removal last week at [facility]. We discussed the procedure in detail as well as the risks and the benefits. We reviewed the complications. Risks, benefits, complications were reviewed with the patient in the office. Complications include but are not limited to bleeding, infection, injury to stomach, small bowel and large bowel, injury to the pancreas, injury to the common bile duct necessitating drainage and referral to tertiary center for repair, bile leak, adverse reactions to the medications, complications of intubation including a sore throat or injury to the uvula, [place], stroke and even . Questions were entertained and answered to her satisfaction and she wished to proceed. No guarantees were given or implied. Proceed with laparoscopic cholecystectomy. Findings: fat blanket around the gallbladder 2 large stones Procedure Description: After informed consent was obtained the patient was brought to the operating room, placed in a supine position and monitors were applied. SCDs were applied to his lower extremities and he was placed under general anesthesia and intubated without difficulty. His abdomen was then prepped and draped in a sterile fashion using ChloraPrep. At this point a timeout was done and the patient's name, date of , procedure type, allergies to medications, metal in her body, antibiotic and DVT prophylaxis, and fire risk was assessed. At this point 0.25% Bupivocaine was injected just above the umbilicus into the dermis and subcutaneous tissue. A 5 mm incision was made with an 11 blade. The skin next to the incision was grasped with penetrating towel clamps and while pulling up on the skin a 5 mm port was placed under direct visualization. The abdomen was insuflated and then 3 more ports were placed. A 12 mm port was placed in the subxiphoid area and two 5 mm ports were placed in the right upper quadrant. The liver was inspected and looked normal. The patient's bed was then turned to the left and her head was brought up. The gallbladder was grasped at the body and pushed towards the right shoulder. There was a lot of fat surrounding the gallbladder making it difficult to identify the neck. Starting at the midpoint of the gallbladder the fatty tissue was gently dissected away using the [place] dissector and cautery. I was able to dissect all the way down until I got to the liver. Next the neck was grasped and pulled towards the right flank and down allowing me to visualize the lymph node. Again there was a lot of fatty tissue surrounding the lymph node. The fatty tissue and lymph nodes were then dissected using a [place] dissector with cautery. The cystic duct was identified it was normal in size. The duct was dissected 360 degrees using the [place] dissector in order for me to visualize its entrance into the gallbladder. Liver was noted behind it. There were no other structures right behind. Critical view was achieved. 3 clips were placed one proximal and 2 distal and the cystic duct was cut. The cystic artery was then identified and dissected 360 degrees. It was located just medial to the cystic duct. It was visualized going into the gallbladder. Once dissected 3 more clips were placed one proximal and 2 distal and the artery was cut. Using the hook dissector the gallbladder was then dissected away from the liver bed. I inadvertently entered the gallbladder and 2 large stones came out. Once the gallbladder was dissected away from the liver bed it was placed into an Endo Catch bag. 2 large stones were also scooped up into the bag and the bag was pulled through the 12 mm port site. I did have to enlarge the 12 mm port site in order to get the gallbladder and the stones out. The 12 mm port was placed back into the abdomen under direct visualization. The liver bed was inspected no bleeding was noted. The abdomen was then irrigated with a 2 L of normal saline until the effluent was clear. Once all the fluid was suctioned out, the 12 mm and the 2 right upper quadrant ports were removed under direct visualization and no bleeding was noted from the fascia. The abdomen was deflated completely and lastly the umbilical port was removed. The fascial defect at the xiphoid process was closed using a 0 Vicryl [id number] suture. The skin was cleaned and the incisions were closed with 4-0 Vicryl. The skin was dried and skin affix was applied over the closed incisions. Needle, instrument and sponge counts were correct at the end of the case. At this point the patient was woken up, extubated and taken back to recovery in stable condition. There were no immediate complications.
--- NOTE | 2022-06-07 06:45 | W.PM.DSUDISC ---
Date of service: 06/07/22 Time of Service: 12:17 Discharge Plan Disposition Patient Disposition: HOME Condition: Good Discharge Details Reason For Visit: Laparoscopic Cholecystectomy Attending Provider: Edita Eden Primary Care Provider: Arleth Portillo Home Meds and New Rx's Prescriptions: New oxycodone 5 mg tablet 5 mg PO Q6H PRNQty: 14 0RF Continued polysaccharide iron complex 150 mg iron capsule 150 mg PO DAILY Qty: 90 6RF Rx Instructions: avoid dairy/calcium-containing products and/or antacids for at least 2 hrs before and after dose ibuprofen 200 MG capsule 400 mg PO PRN flaxseed oil 1,000 MG capsule 1,000 mg PO DAILY docusate sodium [Colace] 100 MG capsule 200 mg PO DAILY turmeric root extract 500 MG capsule 500 mg PO DAILY amlodipine 5 mg tablet 5 mg PO DAILY Qty: 90 4RF lisinopril 10 mg tablet 10 mg PO DAILY Qty: 90 3RF omeprazole 40 mg capsule,delayed release(DR/EC) 40 mg PO DAILY Qty: 90 3RF Discharge Instructions Additional Instructions: Activity at Home after surgery: 1. Make sure you walk outside at least 4 times per day 2. You should be able to climb a flight of stairs 3. No driving while in pain or taking pain medications 4. No strenuous activity or heavy lifting ( more then 10 lb) for 2 weeks (laparoscopic surgery) Diet, Nutrition, & wound healin. Avoid alcohol until after you are recovered from your surgery 2. Make sure to eat plenty of lean protein (meat, fish, eggs, cottage cheese, beans) 3. Eat a variety of fruits and vegetables. Eat plenty of high fiber foods to avoid constipation. 4. Drink plenty of liquids to stay hydrated and avoid constipation Pain Medications: 1. Tylenol 650mg every 6 hours as needed and Ibuprofen 600 mg every 6 hours as needed. You may alternate between the 2 medications every 3 hours 2. If a narcotic has been prescribed take as directed only for breakthrough pain For Constipation: 1. Take Milk of Magnesia, Colace or MiraLax as needed for constipation Other: 1. You may shower daily. Do not scrub the incisions 2. Do not soak the incisions for 1 week 3. You may alternate ice and heat as needed for pain and swelling Wound Care: 1. Keep the incisions clean and dry Please call our office if you develop: 1. Fevers >101.5 2. Nausea or Vomiting 3. Worsening pain 4. Redness and thick discharge from the wounds If after hours please call the Hospital at and ask to speak to the on-call surgeon Referrals: Edita Eden MD [ [facility] STAFF PHYSICIAN] - 06/20/22 9:30 am Activity:: as above Shower/Bathe:: 24 hours Diet:: low fat Discharge Orders Discharge Orders: Discharge Order (Routine); Ordered 06/07/22 Ordered By: Edita Eden DS: Diagnosis Discharge Diagnosis (1) Cholelithiasis: Status: Acute (2) Cholecystitis: Status: Acute
[2022-06-07] MEDS: Acetaminophen 500 MG TAB 1000 MG PO (07:59)
[2022-06-07] MEDS: Gabapentin 300 MG CAP 600 MG PO (07:59)
--- NOTE | 2022-06-07 08:01 | ANES.PREOP_ITS ---
General Info Date of Service Date Performed: 06/07/22 Height: 5 ft 8 in Weight: 88.2 kg Body Mass Index (BMI): 29.5 Surgical Procedure: Operation Date: 06/07/22 09:25 Proposed Procedure Side Surgeon p Cholecystectomy Laparoscopic Edita Eden MD Meds Allergies and Home Medications Allergies Allergy/AdvReac Type Severity Reaction Status Date / Time No Known Allergies Allergy Verified 06/07/22 07:48 Home Medication Medication Instructions Recorded docusate sodium 100 mg capsule 200 mg PO DAILY 12/19/12 (Colace) flaxseed oil 1,000 mg capsule 1,000 mg PO DAILY 12/19/12 ibuprofen 200 mg capsule 400 mg PO PRN 12/19/12 turmeric root extract 500 mg 500 mg PO DAILY 04/16/15 capsule polysaccharide iron complex 150 mg 150 mg PO DAILY #90 caps 06/09/19 iron capsule amlodipine 5 mg tablet 5 mg PO DAILY #90 tab-caps 05/22/21 lisinopril 10 mg tablet 10 mg PO DAILY #90 tabs 05/04/22 omeprazole 40 mg capsule,delayed 40 mg PO DAILY #90 tab-caps 05/24/22 release Current Visit Medications: Current Medications Generic Name Dose Route Start Last Admin Trade Name Freq PRN Reason Stop Dose Admin Acetaminophen 1,000 mg 06/07/22 06:00 06/07/22 07:59 Acetaminophen 500 Mg Tab PO 06/07/22 23:59 1,000 mg PREOP CLARK Administration Gabapentin 600 mg 06/07/22 06:00 06/07/22 07:59 Gabapentin 300 Mg Cap PO 06/07/22 23:59 600 mg PREOP CLARK Administration Ringer's Solution 1,000 mls @ 80 mls/hr 06/07/22 06:00 IV 06/07/22 23:59 INFUSION CLARK Cefazolin Sodium/Dextrose 2 gm in 50 mls @ 100 mls/hr 06/07/22 06:00 Ancef Duplex IVPB 06/07/22 23:59 PREOP CLARK Ondansetron HCl 4 mg/ Sodium 52 mls @ 200 mls/hr 06/07/22 06:46 Chloride IVPB Q6H PRN PRN IV Miscellaneous Supplies 1 each 06/07/22 06:00 Iv Access IV 06/07/22 23:59 DIRECTED CLARK Oxycodone HCl 5 mg 06/07/22 06:46 Oxycodone 5 Mg Tab PO Q3H PRN PRN Pain Sodium Chloride 0 ml 06/07/22 06:00 Normal Saline Flush 10 Ml Syr IV 06/07/22 23:59 PRN PRN Sodium Chloride 0 ml 06/07/22 06:00 Normal Saline 10 Ml Vial IJ 06/07/22 23:59 DIRECTED PRN Sterile Water 0 ml 06/07/22 06:00 Water,Injection,Sterile 10 Ml Vial IJ 06/07/22 23:59 DIRECTED PRN PFSH Active Problems Active Problems: Problem Status Onset Code Cholelithiasis K80.20 Choledocholithiasis with acute cholecystitis with obstruction K80.43 Gallstones K80.20 Cholecystitis K81.9 Aortic stenosis I35.0 Colon polyps K63.5 Esophageal reflux K21.9 Hyperlipidemia 01/22/13 E78.5 Impaired fasting glucose R73.01 Gastrointestinal hemorrhage K92.2 Gastroesophageal reflux disease with esophagitis K21.0 Gastric polyps 04/27/16 K31.7 Essential hypertension I10 Medical History Medical History Anemia 2019-secondary to GI bleed, resolved Hemorrhoids Overweight Surgical History Surgical History Hemorrhoidal Banding History of colonoscopy (~06/2019) 07/10 - tubular adenoma. History of umbilical hernia repair Tobacco Smoking/Tobacco Use Status: Never Passive smoking exposure: No Second hand exposure: No Alcohol Alcohol Intake: current Alcohol intake frequency: a few times a week Alcohol type: beer Substance Use Substance use: Never Substance use type: does not use Vital Signs and Lab Results Vital Signs Most Recent Vital Signs in EMR: Most Recent Vital Signs Temp Pulse Resp BP Pulse Ox 36.4 C L 60 17 132/82 98 06/07/22 07:40 06/07/22 07:40 06/07/22 07:40 06/07/22 07:40 06/07/22 07:40 Lab Results Blood Type / Crossmatch: No Data to Display Complete Blood Count: White Blood Count 4.77 10^3/uL (4.4-10.8) 05/28/22 06:23 Red Blood Count 4.36 10^6/uL (4.36-5.78) 05/28/22 06:23 Hemoglobin 13.6 g/dL (13.5-17.5) 05/28/22 06:23 Hematocrit 39.6 % (40.0-50.0) L 05/28/22 06:23 Platelet Count 159 10^3/uL (130-400) 05/28/22 06:23 Complete Metabolic Panel: Sodium 141 mmol/L (136-145) 05/30/22 06:22 Potassium 3.6 mmol/L (3.5-5.1) 05/30/22 06:22 Chloride 106 mmol/L (98-107) 05/30/22 06:22 Carbon Dioxide 26.0 mmol/L (21.0-32.0) 05/30/22 06:22 BUN 15 mg/dL (7-18) 05/30/22 06:22 Creatinine 1.0 mg/dL (0.70-1.30) 05/30/22 06:22 Est GFR (CKD-EPI 2020) 79.47 (mL/min/1.73m2) 05/30/22 06:22 Magnesium 2.0 mg/dL (1.8-2.4) 05/25/22 17:25 Calcium 8.4 mg/dL (8.5-10.1) L 05/30/22 06:22 Albumin 2.9 g/dL (3.4-5.0) L 05/30/22 06:22 Glucose 89 mg/dL (74-106) 05/30/22 06:22 C-Reactive Protein 4.16 mg/dL (0.0-0.3) H 05/26/22 06:05 Liver Function Panel: Alanine Aminotransferase (ALT/SGPT) 288 U/L (16-63) H 05/30/22 06:22 Aspartate Amino Transf (AST/SGOT) 143 U/L (15-37) H 05/30/22 06 :22 Coagulation Panel: INR International Normalized Ratio 1.1 (0.9-1.1) 05/27/22 06:1 4 Prothrombin Time 10.6 sec (9.3-11.0) 05/27/22 06:14 Cardiac Panel: Troponin I < 50 ng/L (<or=60) 05/25/22 Arterial Blood Gas: No Data to Display Venous Blood Gas: No Data to Display Pancreas Panel: Lipase 138 U/L (73-393) 05/30/22 06:22 Thyroid Panel: No Data to Display Infectious Disease: Coronavirus (COVID-19)(PCR) Negative (Negative) 05/27/22 09:55 Coronavirus 2019 Source Nasal/Nares 05/27/22 09:55 Blood Cultures: No Data to Display Toxicology Panel: No Data to Display Imaging and Studies Imaging and Studies Study information below may be from another EMR and interpreted by another provider. Please see original notes in EMR for more complete details. EKG Summary: 05/25/2022: Conclusion Sinus tachycardia...rate> 99 Probable left atrial enlargement...P >50mS, <-0.10mV V1 Normal [place] Nonspecific ST-T changes Echocardiogram Summary: 05/29/2022: Conclusion Normal left ventricular wall thickness and chamber size. Estimated ejection fraction is 60%. Wall motion is normal Normal right ventricular size and systolic function Both atria are normal in size Aortic valve is calcified and probably trileaflet. There is mild aortic stenosis. Peak gradient is 26, mean 14 mmHg. Calculated aortic valve area is 1.3 cm?? Mild mitral annular calcification. Mild mitral regurgitation Normal tricuspid valve with trace regurgitation. Right ventricular systolic pressure could not be estimated There has been no change compared to an echocardiogram from January 2022 Anesthesia Assessment and Plan Anesthesia History Personal History: No History of Anesthesia Complications Family History: No Family History of Anesthesia Complications Exercise Tolerance Exercise Tolerance: Metabolic Equivalents>4 Pertinent Negatives Pertinent Negatives: No Symptoms of GERD, No Major Cardiovascular Symptoms or Complaints and No Major Pulmonary Symptoms or Complaints Cardiac & Pulmonary Exam Cardiac Exam: Heart Murmur Present Pulmonary Exam: Clear Bilateral Breath Sounds Implantable Cardiac Device Does patient have a Pacemaker or an ICD?: No Airway Exam Known Difficult Airway: No Mallampati Class: 1 Mouth Opening: Normal (> 3cm) Thyromental Distance: Greater than 3 cm Neck Range of Motion: Full ROM Neck Circumference: Normal Teeth Condition: Normal Dentition ASA Classification ASA Score: ASA 2 Emergency Case?: No NPO Status NPO Status: NPO Clears >2 hours, Solids >8 hours Anesthesia Plan Resuscitation Status: Full Code Anesthesia Technique: General Anesthesia Airway Planned: Endotracheal Tube Monitors Used: Standard Monitors
[2022-06-07] MEDS: Lactated Ringers 1,000 ML 80 ML IV (08:17)
[2022-06-07] MEDS: ceFAZolin 2 GM/50 ML BAG IVPB (09:13)
[2022-06-07] MEDS: Bupivacaine 0.25% Pres-Free 30 ML VIAL (09:30)
--- NOTE | 2022-06-07 10:09 | GB_PTH ---
PATIENT: Rikki Villaseñor LOC: [facility] U#:[id number] AGE/SX: 72/M ROOM: RE06/07/[address]: Edita Eden MD : 1950 BED: DIS: 06/07/2022 SPEC #: [id number] RECD: 06/07/22 12:53 STATUS: CHARLY REQ #: [id number] EVE: 06/07/22 10:[address]: Edita Eden DEPT: Surgical Specimen RECD BY: Rebeka Larson ENTERED: 06/07/22 12:55 SP TYPE: GB OTHR DR: Arleth Portillo Tissues: 1 - GALLBLADDER Procedures: GROSS AND MICRO LEVEL 3 Comments: [id number]
[2022-06-07] MEDS: fentaNYL 100 MCG/2 ML VIAL IVP (11:06)
[2022-06-07] MEDS: oxyCODONE 5 MG TAB PO (11:59)
--- NOTE | 2022-06-07 14:49 | W.ANESPOSTOP ---
Postoperative Evaluation Date, Time and Location Date Performed: 06/07/22 Time Performed: 11:30 Patient Location: Day Surgery Unit Vital Signs Most Recent Imported Vital Signs: Most Recent Vital Signs Temp Pulse Resp BP Pulse Ox 36.7 C 79 18 129/75 95 06/07/22 12:52 06/07/22 12:52 06/07/22 12:52 06/07/22 12:52 06/07/22 12:52 Pain Score Most Recent Pain Score: Most Recent Pain Score Pain Level 2 06/07/22 12:52 Assessment Mental Status: Awake (Alert & Oriented to Patient Baseline) Airway and Respiratory Function: Patent airway with normal (patient baseline) respiratory exam Cardiovascular Function: Hemodynamically Stable Hydration Status: Adequately Hydrated Nausea & Vomiting: No Nausea or Vomiting Pain: Pain is tolerable per patient Peripheral Nerve Block: Patient did not receive a nerve block
== END 2022-06-07 13:09 | disposition home or self-care (01) ==
PROVIDERS: PCP Family Medicine; Visit Provider Surgery
PROC: 0FT44ZZ Resection of Gallbladder, Percutaneous Endoscopic Approach (ICD-10-PCS; CPT 47562; principal; 2022-06-07 09:15)
DX: K80.10 Calculus of gallbladder with chronic cholecystitis without obstruction (principal); I35.0 Nonrheumatic aortic (valve) stenosis; E78.5 Hyperlipidemia, unspecified; R73.01 Impaired fasting glucose
CPT/HCPCS: 47562; 88304; J0690; J1100; J2370; J2405; J2704; J3010

== ENCOUNTER → 2022-06-20 09:33 | Outpatient (BNVA) | payer MEDICARE, SELFPAY | PROVIDERS: PCP Family Medicine; Referring Provider Family Medicine; Visit Provider Surgery | DX: Z48.815 Encounter for surgical aftercare following surgery on the digestive system (principal) ==

== ENCOUNTER 2022-08-02 03:10 | Outpatient (CLI) | payer MEDICARE, SELFPAY ==
[2022-08-02 16:41] LABS: ALT 44 U/L (16-63); AST 24 U/L (15-37); Albumin 4.1 g/dL (3.4-5.0); Alkaline Phosphatase 130 U/L (46-116); Anion Gap 9.1 mmol/L (3-11); BUN 16 mg/dL (7-18); Bilirubin, Total 0.4 mg/dL (0.2-1.0); CO2 25.9 mmol/L (21.0-32.0); CREATININE 0.9 mg/dL (0.70-1.30); Calculated LDL 156 mg/dL (<100); Chloride 105 mmol/L (98-107); Cholesterol 241 mg/dL (<200); Estimated GFR 90.18 (mL/min/1.73m2); Glucose 124 mg/dL (74-106); HDL Cholesterol 38 mg/dL (40-60); Potassium 3.9 mmol/L (3.5-5.1); Sodium 140 mmol/L (136-145); Total Protein 7.6 g/dL (6.4-8.2); Triglyceride 237 mg/dL (<150)
[2022-08-03 19:19] LABS: PSA, Screening 4.5 ng/mL (<=6.5)
== END 2022-08-02 03:11 | disposition home or self-care (01) ==
LOC: LBO 03:10
PROVIDERS: PCP Family Medicine; Visit Provider Family Medicine
DX: K80.43 Calculus of bile duct with acute cholecystitis with obstruction (principal); Z00.00 Encounter for general adult medical examination without abnormal findings; E78.5 Hyperlipidemia, unspecified; I10 Essential (primary) hypertension; I35.0 Nonrheumatic aortic (valve) stenosis; K21.9 Gastro-esophageal reflux disease without esophagitis; Z12.5 Encounter for screening for malignant neoplasm of prostate
CPT/HCPCS: 36415; 80053; 80061; 84153

== ENCOUNTER 2022-12-13 13:10 | Emergency (ER) | payer MEDICARE, SELFPAY ==
[2022-12-13 13:14] VITALS: BP 180/89; PULSE 76; RESP 18; O2SAT 98
--- NOTE | 2022-12-13 13:15 | RT.EKG_ITS ---
APPROVED REPORT Exam: Resting ECG Reason for Exam: chest pain Patient Location: E HR:73 bpm ECG Measurements Heart Rate 73 AXIS DC 173 P 16 QRSd 86 QRS 28 QT 361 T 40 QTc 398 Conclusion Sinus rhythm...normal P axis, V-rate 60- 99
--- NOTE | 2022-12-13 13:45 | DI.RAD_ITS ---
Exam(s) XR CHEST 2V PA LATERAL EXAM: XR CHEST 2V PA LATERAL CLINICAL HISTORY: Chest Pain, URI. TECHNIQUE: 2D digital imaging was performed. COMPARISON: CR CHEST 2 VIEWS PA,LAT from 03/30/2016 FINDINGS: 2 views: Heart size is normal. The mediastinum is not widened. Lungs are clear. No infiltrates nor pleural effusions. IMPRESSION: No acute pulmonary findings.No significant change compared to March 2016. DATA REPOSITORY: RADIATION DOSE DELIVERED:
--- NOTE | 2022-12-13 13:49 | W.ED.GENAD ---
Discharge Plan Discharge Details Chief Complaint: Chest Pain Primary Care Provider: Arleth Portillo ED Provider: Zamzam Solares Home Meds and New Rx's Prescriptions: No Action polysaccharide iron complex 150 mg iron capsule 150 mg PO DAILY Qty: 90 6RF Rx Instructions: avoid dairy/calcium-containing products and/or antacids for at least 2 hrs before and after dose ibuprofen 200 MG capsule 400 mg PO PRN flaxseed oil 1,000 MG capsule 1,000 mg PO DAILY docusate sodium [Colace] 100 MG capsule 200 mg PO DAILY turmeric root extract 500 MG capsule 500 mg PO DAILY lisinopril 10 mg tablet 10 mg PO DAILY Qty: 90 3RF omeprazole 40 mg capsule,delayed release(DR/EC) 40 mg PO DAILY Qty: 90 3RF amlodipine 5 mg tablet 5 mg PO DAILY Qty: 90 4RF atorvastatin 40 mg tablet 40 mg PO QHS Qty: 90 3RF Hold Instructions: for 7 days while using paxlovid. Medical Decision Making 72-year-old male presents to the ER with a chief complaint of chest pain and URI type symptoms that began 2 days ago. Patient reports that began with URI type symptoms with congestion and sinus pressure woke up the next morning with some anterior midsternal chest discomfort. Associated with nausea. No actual vomiting. He reports that his chest discomfort has been constant since. He recently had his gallbladder out in May. He does have a systolic murmur. History of hyperlipidemia aortic stenosis, GERD ,tubular adenoma of colon and hypertension. Cardiac work-up ordered including serial troponins, D-dimer chest x-ray and proBNP. Differential diagnosis includes but not limited to CAD, AK, URI, pneumonia, PE CBC shows white blood cell count of 11.0, neutrophils 8.81 initial troponin less than 50, glucose 117 magnesium slightly low at 1.5, alk phos 132 BNP is within normal limits 144. Repeat troponin is pending. Chest x-ray is within normal limits. Do suspect URI. Possible sinusitis. D-dimer is pending at this time. We will give p.o. magnesium albuterol inhaler and consider possible Augmentin. D-dimer elevated at greater than 800 which is above the age-adjusted D-dimer. CT chest rule out PE order placed. Care is to be handed off to oncoming provider QUENTIN Burnette pending CT and repeat troponin at 1630. Imaging Data Radiologic Study: Imaging: X-Ray Radiologist's impression: EXAM: XR CHEST 2V PA LATERAL CLINICAL HISTORY: Chest Pain, URI. TECHNIQUE: 2D digital imaging was performed. COMPARISON: CR CHEST 2 VIEWS PA,LAT from 03/30/2016 FINDINGS: 2 views: Heart size is normal. The mediastinum is not widened. Lungs are clear. No infiltrates nor pleural effusions. IMPRESSION: No acute pulmonary findings.No significant change compared to March 2016. Lab Data Lab results reviewed: Yes I reviewed the patient's lab results. Labs: Laboratory Tests Range/Units 12/13/22 12/13/22 12/13/22 13:42 13:42 13:42 WBC (4.4-10.8) 10^3/uL 11.00 H RBC (4.36-5.78) 10^6/uL 4.59 Hgb (13.5-17.5) g/dL 14.5 Hct (40.0-50.0) % 40.9 MCV (80-95) fL 89 MCH (27.0-33.0) pg 31.6 MCHC (32.0-36.0) % 35.5 RDW (11.8-14.1) % 13.5 Plt Count (130-400) 10^3/uL 197 MPV (8.0-11.0) fL 8.5 Immature Gran % 0.4 Neutrophils % 80.1 Lymphocytes % 8.5 Monocytes % 8.4 Eosinophils % 2.1 Basophils % 0.5 Nucleated RBC % (0.0-0.3) % 0.0 Absolute Neutrophils (1.2-6.7) 10^3/uL 8.81 H Absolute Lymphocytes (1.2-3.4) 10^3/uL 0.94 L Absolute Monocytes (0.1-0.8) 10^3/uL 0.92 H Absolute Eosinophils (0.0-0.7) 10^3/uL 0.23 Absolute Basophils (0.0-0.2) 10^3/uL 0.06 D-Dimer (<500) ng/mlFEU 861 H Sodium (136-145) mmol/L 140 Potassium (3.5-5.1) mmol/L 3.6 Chloride (98-107) mmol/L 104 Carbon Dioxide (21.0-32.0) mmol/L 27.0 Anion Gap (3-11) mmol/L 9.0 BUN (7-18) mg/dL 14 Creatinine (0.70-1.30) mg/dL 1.0 Est GFR (CKD-EPI 2020) (mL/min/1.73m2) 79.47 Glucose (74-106) mg/dL 117 H Calcium (8.5-10.1) mg/dL 9.1 Magnesium (1.8-2.4) mg/dL 1.5 L Total Bilirubin (0.2-1.0) mg/dL 0.9 AST (15-37) U/L 18 ALT (16-63) U/L 34 Alkaline Phosphatase (46-116) U/L 132 H Troponin I (<or=60) ng/L < 50 NT-Pro-B Natriuret Pep (<300) pg/mL 144 Total Protein (6.4-8.2) g/dL 7.4 Albumin (3.4-5.0) g/dL 3.8 HPI General Mode of arrival: ambulatory. Date/Time Provider Initiated Documentation: 12/13/22 13:20. Limitations to Documentation: no limitations. Information obtained by: patient, RN notes reviewed and old records reviewed. HPI Narrative: 72-year-old male presents to the ER with a chief complaint of chest pain and URI type symptoms that began 2 days ago. Patient reports that began with URI type symptoms with congestion and sinus pressure woke up the next morning with some anterior midsternal chest discomfort. Associated with nausea. No actual vomiting. He reports that his chest discomfort has been constant since. He recently had his gallbladder out in May. He does have a systolic murmur. History of hyperlipidemia aortic stenosis, GERD ,tubular adenoma of colon and hypertension. Related Data Home Medications Medication Instructions Recorded Confirmed docusate sodium 100 mg capsule 200 mg PO DAILY 12/19/12 12/13/22 (Colace) flaxseed oil 1,000 mg capsule 1,000 mg PO DAILY 12/19/12 12/13/22 ibuprofen 200 mg capsule 400 mg PO PRN 12/19/12 12/13/22 turmeric root extract 500 mg 500 mg PO DAILY 04/16/15 12/13/22 capsule polysaccharide iron complex 150 mg 150 mg PO DAILY #90 caps 06/09/19 12/13/22 iron capsule lisinopril 10 mg tablet 10 mg PO DAILY #90 tabs 05/04/22 12/13/22 omeprazole 40 mg capsule,delayed 40 mg PO DAILY #90 tab-caps 05/24/22 12/13/22 release amlodipine 5 mg tablet 5 mg PO DAILY #90 tab-caps 07/03/22 12/13/22 atorvastatin 40 mg tablet 40 mg PO QHS #90 tabs 08/04/22 12/13/22 Previous Rx's Medication Instructions Recorded polysaccharide iron complex 150 mg 150 mg PO DAILY #90 caps 06/09/19 iron capsule lisinopril 10 mg tablet 10 mg PO DAILY #90 tabs 05/04/22 omeprazole 40 mg capsule,delayed 40 mg PO DAILY #90 tab-caps 05/24/22 release amlodipine 5 mg tablet 5 mg PO DAILY #90 tab-caps 07/03/22 atorvastatin 40 mg tablet 40 mg PO QHS #90 tabs 08/04/22 Allergies Allergy/AdvReac Type Severity Reaction Status Date / Time No Known Allergies Allergy Verified 12/13/22 13:24 General Stated Complaint: Chest Pain DELILAH: 2 Review of Systems All systems reviewed & are unremarkable except as noted in HPI and below Cardiovascular Cardiovascular: Reports chest pain and Reports chest pain at rest Respiratory Respiratory: Reports as per HPI, Reports chest congestion and Reports cough Gastrointestinal Gastrointestinal: Denies abdominal pain, Denies diarrhea, Reports nausea and Denies vomiting PFSH All Active Problems COVID-19 (Acute ~09/30/22) Essential hypertension (Acute) Gastroesophageal reflux disease with esophagitis (Acute) H.H.; duodenitis Hyperlipidemia (Acute 01/22/13) Impaired fasting glucose (Acute) Aortic stenosis (Chronic) 2019-mild to moderate by echocardiogram, normal cardiac function; stable on echo 01/2022 and 05/2022 Tubular adenoma of colon (Acute ~06/2019) Medical History Anemia 2020-secondary to GI bleed, resolved; manages with iron supplement bid Choledocholithiasis with acute cholecystitis with obstruction (05/2022) [place] [facility] [place] [facility] Gastric polyps (04/27/16) Hemorrhoids cause anemia Overweight Surgical History History of colonoscopy (~06/2019) 07/10 - tubular adenoma. History of umbilical hernia repair S/P hemorrhoidectomy h/o banding S/P laparoscopic cholecystectomy (~04/2022) Family History Mother Diabetes Essential hypertension Heart disease Hyperlipidemia Breast cancer Father Diabetes Essential hypertension Heart disease Sister Breast cancer Brother Hyperlipidemia Brother , 6 months old CF (cystic fibrosis) Brother CF (cystic fibrosis) Brother CF (cystic fibrosis) Maternal Grandfather No problems noted. Paternal Grandfather Diabetes Maternal Grandmother No problems noted. Paternal Grandmother No problems noted. Son Depression Daughter No problems noted. 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 Pets and animals: Yes Pets and animals: cat(s) Sexually active: Yes Do you think of yourself as: straight/heterosexual Current gender identity: male What is your relationship status?: How often do you talk on the phone with friends or family?: three or more times per week How often do you get together with friends or relatives?: three or more times per week How often do you attend zoroastrianism or lutheran services?: 1-3 times per year Do you belong to any clubs or organized social groups?: yes Panel score (0-1 are the most socially isolated patients): 3 What type of physical activity do you participate in: walking Duration: 30-45 minutes/day Frequency: 3-4 times per week Ayse/Holiness: Zoroastrianism Special ayse needs: No Seatbelt use: sometimes Helmet use: Yes Helmet use: always Drive intox or ride w/intox bus driver/monitor: No Do you feel safe at home: Yes Do you feel safe in your relationship?: Yes Exam Narrative Exam Narrative: Constitutional: Alert and oriented x3. Appears stated age. Normal body habitus. Head: Normocephalic, no trauma. Eyes: Pupils PERRL, Red reflex noted, EOM's intact. Eyelids symmetrical without lesions, discharge, or swelling. ENT: Bilateral TM's WNL, External ear normal to inspection, no mastoid TTP, swelling, or erythema, Nasal turbinates WNL, no nasal discharge. Normal dentition, Posterior pharynx WNL, no exudate. Chest: RRR, Normal S1, S2, distal pulses intact. Resp: Lungs clear to auscultation bilaterally, no wheezes, rales, or rhonchi. Abdomen: Soft, non-distended, Normoactive bowel sounds all 4 quads. Musculoskeletal: Normal gait, 5/5 strength to all four extremities. Skin: No suspicious rashes or lesions. Capillary refill less than 2 sec. Neurologic: Cranial nerves II-XII intact. Alert and oriented x 3. Motor: No deficits noted. Sensory: Intact bilaterally all 4 extremities. Reflexes: DTR's intact bilaterally.. Hematologic/Lymphatic: No ecchymosis, no lymphadenopathy. Course Vital Signs Vital signs: Vital Signs Pulse 76 12/13/22 13:14 Respiratory Rate 18 12/13/22 13:14 Blood Pressure 180/89 H 12/13/22 13:14 Pulse Oximetry 98 12/13/22 13:14 Pulse 76 12/13/22 13:14 Respiratory Rate 18 12/13/22 13:14 Respiratory Effort Normal 12/13/22 13:25 Blood Pressure 180/89 H 12/13/22 13:14 Blood Pressure Position Sitting 12/13/22 13:14 Pulse Oximetry 98 12/13/22 13:14 Oxygen Delivery Method Room Air 12/13/22 13:14 Oxygen Flow Rate 0 12/13/22 13:14 Pain Level 7 12/13/22 13:14 Sign Out Sign Out Data: Sign Out Comment: Pending CT chest, Repeat Trop at 1630. Suspect URI. CP x 2 days Last updated by Zamzam Solares NP at 12/13/22 15:41
[2022-12-13 13:50] LABS: Abs Immature Grans 0.04 10^3/uL (0.0-0.06); Absolute Basophil Count 0.06 10^3/uL (0.0-0.2); Absolute Eosinophil Count 0.23 10^3/uL (0.0-0.7); Absolute Lymphocyte Count 0.94 10^3/uL (1.2-3.4); Absolute Monocyte Count 0.92 10^3/uL (0.1-0.8); Absolute Neutrophil Count 8.81 10^3/uL (1.2-6.7); Basophils % 0.5; Eosinophils % 2.1; HCT 40.9 % (40.0-50.0); HGB 14.5 g/dL (13.5-17.5); Immature Grans % 0.4; Lymphocytes % 8.5; MCH 31.6 pg (27.0-33.0); MCHC 35.5 % (32.0-36.0); MCV 89 fL (80-95); MPV 8.5 fL (8.0-11.0); Monocytes % 8.4; Neutrophils % 80.1; Platelet Count 197 10^3/uL (130-400); RBC 4.59 10^6/uL (4.36-5.78); RDW 13.5 % (11.8-14.1); RDW-SD 43.8 fL
[2022-12-13] MEDS: Aspirin 81 MG CHEW 324 MG CH (13:57)
[2022-12-13] MEDS: Normal Saline 1,000 ML 150 ML IV (13:57)
[2022-12-13] MEDS: Ondansetron 4 MG/2 ML VIAL IVP (13:57)
[2022-12-13 14:14] LABS: ALT 34 U/L (16-63); AST 18 U/L (15-37); Albumin 3.8 g/dL (3.4-5.0); Alkaline Phosphatase 132 U/L (46-116); BUN 14 mg/dL (7-18); Bilirubin, Total 0.9 mg/dL (0.2-1.0); Calcium 9.1 mg/dL (8.5-10.1); Chloride 104 mmol/L (98-107); Estimated GFR 79.47 (mL/min/1.73m2); Glucose 117 mg/dL (74-106); Magnesium 1.5 mg/dL (1.8-2.4); NT-proBNP 144 pg/mL (<300); Potassium 3.6 mmol/L (3.5-5.1); Sodium 140 mmol/L (136-145); Total Protein 7.4 g/dL (6.4-8.2); Troponin I < 50 ng/L (<or=60)
[2022-12-13 15:27] LABS: D-Dimer 861 ng/mlFEU (<500)
--- NOTE | 2022-12-13 15:30 | DI.CT_ITS ---
Exam(s) CT CHEST PE CTA EXAM: CT CHEST PE CTA CLINICAL HISTORY: Chest Pain, elevated Dimer. TECHNIQUE: Imaging Protocol: CT angiography of the chest was performed using pulmonary embolus marii col. Multi planar reconstructions were performed. CONTRAST MATERIAL: Intravenous: Omnipaque 350 Contrast volume: 100 cc COMPARISON: CT CT ABDOMEN PELVIS W from 05/25/2022 CR XR CHEST 2V PA LATERAL from 12/13/2022 FINDINGS: CHEST: PULMONARY ARTERIES: There are no intraluminal filling defects to suggest acute pulmonary emboli. LUNGS: There are mild increased markings left lower lobe lateral basal segment consistent mild infilt rate at this level. No pleural effusions. No ominous pulmonary nodules. No focal findings evident in trachea and mainstem bronchi.. MEDIASTINUM: There is no hilar nor mediastinal adenopathy. CARDIAC: Heart size is upper normal. There is no pericardial effusion.Caliber of the thoracic aorta is within normal limits. No dissection. There is no significant shift of the interventricular septum . PARTIALLY VISUALIZED UPPERMOST ABDOMEN: No obvious findings OSSEOUS: No significant osseous lesions.. IMPRESSION: 1. No evidence of acute pulmonary emboli. No evidence of pulmonary infarction.No pleural effusions. 2. Mild infiltrate noted in left lower lobe lateral basal segment. 3. No evidence of aortic dissection. No pericardial effusion. Called by myself to ER. RADIATION DOSE DELIVERED: 470mGy.cm Total DLP DATA REPOSITORY: All CT scans at this facility are submitted to the National Radiology Data Registry (NRDR) Dose Index Registry (DIR) with the [employer] (ACR). RADIATION OPTIMIZATION: All CT scans at this facility use at least one of these dose optimization te chniques: automated exposure control; mA and/or kV adjustment per patient size (includes targeted exa ms where dose is matched to clinical indication); or iterative reconstruction.
[2022-12-13] MEDS: Normal Saline Flush 10 ML SYR IVP (16:30)
[2022-12-13] MEDS: Omnipaque 350 MG/ML 100 ML BTL IJ (16:30)
[2022-12-13] MEDS: Normal Saline - Diluent 50 ML VIAL IJ (16:30)
[2022-12-13 17:15] LABS: Troponin I < 50 ng/L (<or=60)
--- NOTE | 2022-12-13 18:07 | NUR.NOTE ---
Nursing Note: Request for regular stress test for chest pain faxed to [facility]. Instruction given to pt.
[2022-12-13 18:12] LABS: Lipase 33 U/L (16-77)
[2022-12-13 18:44] VITALS: BP 134/80; PULSE 72; RESP 18; TEMP 37; O2SAT 98
== END 2022-12-13 18:27 | disposition home or self-care (01) ==
PROVIDERS: Registered Nurse Emergency; Emergency Provider Physician Assistant; PCP Family Medicine
DX: R07.9 Chest pain, unspecified (principal); R74.8 Abnormal levels of other serum enzymes; I10 Essential (primary) hypertension; E78.5 Hyperlipidemia, unspecified; R11.0 Nausea; I35.0 Nonrheumatic aortic (valve) stenosis; K21.00 Gastro-esophageal reflux disease with esophagitis, without bleeding; Z83.3 Family history of diabetes mellitus; Z82.49 Family history of ischemic heart disease and other diseases of the circulatory system; R09.89 Other specified symptoms and signs involving the circulatory and respiratory systems
CPT/HCPCS: 71275; 80053; 83690; 93005; 96361; 96374; 99285; 71046; 83735; 83880; 84484; 85025; 85379; 93010; 99284; J2405; J3490

== ENCOUNTER → 2023-08-08 14:28 | Outpatient (BNVA) | payer MEDICARE, SELFPAY | PROVIDERS: PCP Family Medicine; Referring Provider Family Medicine; Visit Provider Surgery | DX: K64.9 Unspecified hemorrhoids (principal) | CPT/HCPCS: 99214 ==

== ENCOUNTER 2023-08-24 06:23 | Day surgery (SDC) | payer MEDICARE, SELFPAY ==
--- NOTE | 2023-08-23 11:30 | PDOC.DSDIS_ITS ---
Date of service: 08/24/23 Time of Service: 09:08 Discharge Plan Disposition Patient Disposition: Home Condition: Good Discharge Details Reason For Visit: Hemorrhoidectomy Attending Provider: Javier Nava Primary Care Provider: Arleth Portillo Home Meds and New Rx's Prescriptions: New oxycodone 5 mg tablet 5 mg PO Q8H PRNQty: 15 0RF Rx Instructions: Take 1 tablet by mouth up to every 8 hours if needed for severe pain. Continued polysaccharide iron complex 150 mg iron capsule 150 mg PO DAILY Qty: 90 6RF Rx Instructions: avoid dairy/calcium-containing products and/or antacids for at least 2 hrs before and after dose saw palmetto 500 mg capsule 500 mg PO DAILY Rx Instructions: give with food (meal/snack) lisinopril 20 mg tablet 20 mg PO DAILY Qty: 90 3RF amlodipine 5 mg tablet 5 mg PO DAILY Qty: 90 4RF atorvastatin 40 mg tablet 40 mg PO QHS Qty: 90 3RF Hold Instructions: for 7 days while using paxlovid. ibuprofen 200 MG capsule 400 mg PO PRN flaxseed oil 1,000 MG capsule 1,000 mg PO DAILY docusate sodium [Colace] 100 MG capsule 200 mg PO DAILY turmeric root extract 500 MG capsule 500 mg PO DAILY omeprazole 40 mg capsule,delayed release(DR/EC) 40 mg PO DAILY Qty: 90 3RF Discharge Instructions Instructions: Hemorrhoidectomy (DC) Additional Instructions: Kasi, we were able to complete your procedure today without any difficulty. Hopefully will be too painful for you. I did put in a long-acting numbing medication all around the anus to help with some of the discomfort. As a brief summary for the procedure, I did excise a moderate-sized piece of tissue that was prolapsing down from the anus. This is what I was able to partially see in the office, and what seems at least somewhat consistent with a hemorrhoid. Although your previous procedures may be contributing to this, and distorting the traditional anatomy slightly. Regardless, I will send off the tissue for pathology testing just to be sure that we know what were dealing with. There is not much in the way of internal hemorrhoid disease up higher. So lets see how you do over the next few weeks, and talk again once I have all the information. Have taken the liberty of making a follow-up appointment on September 05 at 1:45 PM. With regards to the next few days, expect to have quite a bit of pain around your anus. I suggest that she use some Tylenol and ibuprofen [id number] over the next 72 hours. I usually tell patients to alternate them. I have also provided a prescription for some stronger pain medication if needed. I would encourage you to pick it up and have it, as some of the pain from anal surgery can come on after hours, so having the medications on hand is a good strategy. I would also encourage you to use some fiber supplement over the next few days. Something like Metamucil or FiberCon is totally fine. Check the label, and check the concentration. I usually recommend about 20 to 30 g of fiber per day. This can be split up over the course of the day if you find it unpleasant on your palate. You should also fruit or nut picker a tube of hemorrhoid cream if you do not already have it. Make sure that it contains hydrocortisone as well as lidocaine. Apply thin layer to your anus once in the morning and once in the evening, and after every bowel movement. I would also encourage you to fruit or nut picker a sitz bath's at any pharmacy if you do not have a comfortable bathtub at home. Sitz bath's can help with the pain associated with anal surgery quite a bit. Fill the bath with a little bit of warm water, and add a 2 to 3 tablespoons of Epsom salts, or baking soda into the water. Mix it up, and soak your anus as needed for pain, or after every bowel movement. If you need anything in the meantime, please do not hesitate to call at any point. Referrals: Javier Nava MD [ [facility] STAFF PHYSICIAN] - (September 05 at 1:45 PM) Activity:: Activity as Tolerated Diet:: As Tolerated Discharge Orders Discharge Orders: Discharge Order (Routine); Ordered 08/23/23 Ordered By: Javier Nava DS: Diagnosis Discharge Diagnosis (1) Acute hemorrhoid: Status: Acute Asessment and Plan: Outpatient follow-up September 05
--- NOTE | 2023-08-23 11:34 | ROE_ITS ---
Date of service: 08/24/23 Time of Service: 09:16 Operative Note Operative Note DATE OF PROCEDURE: 08/24/23 PRE-OP DIAGNOSIS: Hemorrhoids Anal mass PROCEDURE: Anorectal exam under anesthesia with sharp excision of a posterior midline anal mass SURGEON: Javier Nava ANESTHESIA TYPE: Local By Surgeon and General:No Airway Refer to Anesthesia Record ESTIMATED BLOOD LOSS: 25 PATHOLOGY: other (Anal mass) COMPLICATIONS: None Patient was transported to: same day Patient's condition: stable Indications: Rikki is a 73-year-old male with a past medical history of hemorrhoids. He has been experiencing hematochezia over the past several weeks. 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 Procedure Description: After the induction of general anesthesia by way of natural airway, the patient was assisted to lithotomy positioning. Great care was taken to pad the patient and protect points of contact. Next, the perineum was prepped and draped in the usual fashion. On visual examination, there is a mass that appears to be arising from the posterior anal verge. It has elements that are external to the dentate line. The tissue is thickened, and somewhat cobblestoned. It has some external features that raise concern for condyloma. There are no obvious thrombosed external hemorrhoids. Next, I performed a digital rectal exam. As herbert from the previously mentioned mass in the posterior midline, felt normal. Next, I established a generous field block around the anus using Exparel. Next, I used a Hill-Rosenberg retractor to examine the traditional hemorrhoidal columns. There was just mild evidence of internal hemorrhoids on the left lateral column. The right anterior and posterior appeared largely normal. The posterior midline was a little difficult to examine because of the previously mentioned anal column mass. Next, I advanced a Jamia Eaton anal retractor and examined all the columns once again. The proximal anal column looked largely normal, and the distal rectum also appeared normal. Given that the pathology here was not exactly clear, I felt the safest thing to do is sharply excised the mass within the anal column, as it seems to be the most likely contributor to his hematochezia and what appeared to be a prolapsing hemorrhoid. Therefore, I anesthetized the skin in a semielliptical fashion, and then sharply incised it with a 15 blade scalpel. I carefully dissected down through the underlying soft tissues taking great care to isolate any vascular structures underneath. Bleeding was controlled with hemostats. We were well superficial to the sphincter muscle complexes. The soft tissue, and overlying skin were completely excised. Wound was irrigated, and appeared hemostatic with hemostats. Suture ligatures were used for definitive bleeding control. Next, the defect was closed with a running 2-0 Vicryl suture. There was a small amount of bleeding from the distal skin edge, which was ligated with 3-0 Vicryl stitch. The wound was then irrigated once again. It appeared hemostatic. I performed another visual examination of the anal column and distal rectum using the Jamia Eaton retractor. I saw no other abnormalities. Patient skin was then cleansed, and he was assisted back to supine position and allowed awaken from anesthesia. He was then transferred to the day surgery unit.
[2023-08-24 06:33] VITALS: BP 139/86; PULSE 93; RESP 16; TEMP 36.4; O2SAT 96
--- NOTE | 2023-08-24 06:36 | W.ANESPRE ---
General Info Date of Service Date Performed: 08/24/23 Height: 5 ft 8 in Weight: 90.718 kg Body Mass Index (BMI): 30.4 Surgical Procedure: Operation Date: 08/24/23 08:40 Proposed Procedure Side Surgeon p Anorectal Exam Under Anesthesia Javier Nava MD s Hemorrhoid Banding Javier Nava MD Meds Allergies and Home Medications Allergies Allergy/AdvReac Type Severity Reaction Status Date / Time No Known Allergies Allergy Verified 08/24/23 06:28 Home Medication Medication Instructions Recorded docusate sodium 100 mg capsule 200 mg PO DAILY 12/19/12 (Colace) flaxseed oil 1,000 mg capsule 1,000 mg PO DAILY 12/19/12 ibuprofen 200 mg capsule 400 mg PO PRN 12/19/12 turmeric root extract 500 mg 500 mg PO DAILY 04/16/15 capsule polysaccharide iron complex 150 mg 150 mg PO DAILY #90 caps 06/09/19 iron capsule omeprazole 40 mg capsule,delayed 40 mg PO DAILY #90 tab-caps 05/28/23 release amlodipine 5 mg tablet 5 mg PO DAILY #90 tab-caps 07/11/23 atorvastatin 40 mg tablet 40 mg PO QHS #90 tabs 07/11/23 lisinopril 20 mg tablet 20 mg PO DAILY #90 tabs 07/11/23 saw palmetto 500 mg capsule 500 mg PO DAILY 07/11/23 Current Visit Medications: Current Medications Generic Name Dose Route Start Last Admin Trade Name Freq PRN Reason Stop Dose Admin Ringer's Solution 1,000 mls @ 80 mls/hr 08/24/23 06:00 IV 08/24/23 23:59 [facility] IV Miscellaneous Supplies 1 each 08/24/23 06:00 Iv Access IV 08/24/23 23:59 DIRECTED CLARK Morphine Sulfate 2 mg 08/23/23 11:35 Morphine 4 Mg/Ml Syr IVP 09/22/23 11:34 Q1H PRN PRN Sodium Biphosphate/Sodium Phosphate 133 ml 08/24/23 06:00 Na Phosphate Enema 133 Ml Btl MO 08/24/23 16:00 DIRECTED CLARK Sodium Chloride 0 ml 08/24/23 06:00 Normal Saline Flush 10 Ml Syr IV 08/24/23 23:59 PRN PRN Sodium Chloride 0 ml 08/24/23 06:00 Normal Saline 10 Ml Vial IJ 08/24/23 23:59 DIRECTED PRN Sterile Water 0 ml 08/24/23 06:00 Water,Injection,Sterile 10 Ml Vial IJ 08/24/23 23:59 DIRECTED PRN Tramadol HCl 100 mg 08/23/23 11:35 Tramadol 50 Mg Tab PO 09/22/23 11:34 Q6H PRN PRN Pain PFSH Active Problems Active Problems: Problem Status Onset Code Acute hemorrhoid K64.9 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 Essential hypertension I10 Gastroesophageal reflux disease with esophagitis K21.0 Hyperlipidemia 01/22/13 E78.5 Impaired fasting glucose R73.01 Aortic stenosis I35.0 Tubular adenoma of colon ~06/2019 D12.6 Medical History Medical History Choledocholithiasis with acute cholecystitis with obstruction (05/2022) s/p ER[place] at [facility] [place] then Lap santosh at [facility] Anemia 2019-secondary to GI bleed, resolved; manages with iron supplement bid Overweight Hemorrhoids cause anemia Gastric polyps (04/27/16) Surgical History Surgical History S/P hemorrhoidectomy h/o banding S/P laparoscopic cholecystectomy (~04/2022) History of colonoscopy (~06/2019) 07/10 - tubular adenoma. History of umbilical hernia repair Tobacco Smoking/Tobacco Use Status: Never Passive smoking exposure: No Second hand exposure: No Alcohol Alcohol Intake: current Alcohol intake frequency: a few times a month Alcohol type: beer, wine and hard liquor Substance Use Substance use: Never Substance use type: does not use Vital Signs and Lab Results Lab Results Blood Type / Crossmatch: No Data to Display Complete Blood Count: No Data to Display Complete Metabolic Panel: No Data to Display Liver Function Panel: No Data to Display Coagulation Panel: No Data to Display Cardiac Panel: No Data to Display Arterial Blood Gas: No Data to Display Venous Blood Gas: No Data to Display Pancreas Panel: No Data to Display Thyroid Panel: No Data to Display Infectious Disease: No Data to Display Blood Cultures: No Data to Display Toxicology Panel: No Data to Display Imaging and Studies Imaging and Studies Study information below may be from another EMR and interpreted by another provider. Please see original notes in EMR for more complete details. EKG Summary: 05/25/2022: Conclusion Sinus tachycardia...rate> 99 Probable left atrial enlargement...P >50mS, <-0.10mV V1 Normal Henry Nonspecific ST-T changes Echocardiogram Summary: 05/29/2022: Conclusion Normal left ventricular wall thickness and chamber size. Estimated ejection fraction is 60%. Wall motion is normal Normal right ventricular size and systolic function Both atria are normal in size Aortic valve is calcified and probably trileaflet. There is mild aortic stenosis. Peak gradient is 26, mean 14 mmHg. Calculated aortic valve area is 1.3 cm?? Mild mitral annular calcification. Mild mitral regurgitation Normal tricuspid valve with trace regurgitation. Right ventricular systolic pressure could not be estimated There has been no change compared to an echocardiogram from January 2022 Anesthesia Assessment and Plan Anesthesia History Personal History: No History of Anesthesia Complications Family History: No Family History of Anesthesia Complications Exercise Tolerance Exercise Tolerance: Metabolic Equivalents>4 Pertinent Negatives Pertinent Negatives: No Major Cardiovascular Symptoms or Complaints, No Major Pulmonary Symptoms or Complaints and No History of CVA/TIA Cardiac & Pulmonary Exam Cardiac Exam: Heart Murmur Present (previously noted heart murmur) Pulmonary Exam: Clear Bilateral Breath Sounds Implantable Cardiac Device Does patient have a Pacemaker or an ICD?: No Airway Exam Known Difficult Airway: No Mallampati Class: 1 Mouth Opening: Normal (> 3cm) Thyromental Distance: Greater than 3 cm Neck Range of Motion: Full ROM Neck Circumference: Normal Teeth Condition: Normal Dentition ASA Classification ASA Score: ASA 2 Emergency Case?: No NPO Status NPO Status: NPO Clears >2 hours, Solids >8 hours Anesthesia Plan Resuscitation Status: Full Code Anesthesia Technique: General Anesthesia Airway Planned: Natural Airway Monitors Used: Standard Monitors
[2023-08-24 06:37] VITALS: BMI 30.4
[2023-08-24] MEDS: Lactated Ringers 1,000 ML 80 ML IV (07:44)
--- NOTE | 2023-08-24 08:48 | BOWEL_PTH ---
PATIENT: Rikki Villaseñor LOC: [facility] U#:[id number] AGE/SX: 73/M ROOM: RE08/24/[address]: Javier Nava MD : [id number] BED: DIS: 08/24/2023 SPEC #: [id number] RECD: 08/24/23 12:42 STATUS: CHARLY RE #: [id number] EVE: 08/24/23 08:[address]: Javier Nava DEPT: Surgical Specimen RECD BY: Rebeka Larson ENTERED: 08/24/23 12:43 SP TYPE: Bowel OTHR DR: Arleth Portillo Tissues: 1 - BIOPSY BOWEL Procedures: GROSS AND MICRO LEVEL 3 Comments: [id number]
[2023-08-24] MEDS: Bupivacaine LIPOSOME/PF 133 MG/10 ML VIAL IJ (09:00)
[2023-08-24] MEDS: Bupivacaine 0.25% Pres-Free 30 ML VIAL (09:01)
[2023-08-24 09:12] VITALS: BP 96/53; PULSE 71; RESP 16; TEMP 36.4; O2SAT 94
--- NOTE | 2023-08-24 09:23 | W.ANESPOSTOP ---
Postoperative Evaluation Date, Time and Location Date Performed: 08/24/23 Time Performed: 09:18 Patient Location: Day Surgery Unit Vital Signs Most Recent Imported Vital Signs: Most Recent Vital Signs Temp Pulse Resp BP Pulse Ox 36.4 C L 71 16 96/53 L 94 08/24/23 09:12 08/24/23 09:12 08/24/23 09:12 08/24/23 09:12 08/24/23 09:12 Pain Score Most Recent Pain Score: Most Recent Pain Score Pain Level 0 08/24/23 09:12 Assessment Mental Status: Awake (Alert & Oriented to Patient Baseline) Airway and Respiratory Function: Patent airway with normal (patient baseline) respiratory exam Cardiovascular Function: Hemodynamically Stable Hydration Status: Adequately Hydrated Nausea & Vomiting: No Nausea or Vomiting Pain: Pt. Denies Any Pain Peripheral Nerve Block: Patient did not receive a nerve block
[2023-08-24 09:42] VITALS: BP 129/94; PULSE 67; RESP 18; TEMP 36.6; O2SAT 97
== END 2023-08-24 10:37 | disposition home or self-care (01) ==
LOC: SUR 06:23
PROVIDERS: PCP Family Medicine; Visit Provider Surgery
PROC: (CPT 46922; principal; 2023-08-24 08:30)
PROC: (CPT 46922; 2023-08-24 08:30)
DX: K62.89 Other specified diseases of anus and rectum (principal); K64.2 Third degree hemorrhoids; D64.9 Anemia, unspecified
CPT/HCPCS: 46922; 88305; 88304; C9290; J0665; J1100; J1885; J2001; J2405; J2704

== ENCOUNTER → 2023-09-05 13:49 | Outpatient (BNVA) | payer MEDICARE, SELFPAY | PROVIDERS: PCP Family Medicine; Referring Provider Family Medicine; Visit Provider Surgery | DX: Z48.815 Encounter for surgical aftercare following surgery on the digestive system (principal); K64.9 Unspecified hemorrhoids ==

== ENCOUNTER 2024-07-29 03:34 | Outpatient (CLI) | payer MEDICARE, SELFPAY ==
[2024-07-29 14:18] LABS: Abs Immature Grans 0.02 10^3/uL (0.0-0.06); Absolute Basophil Count 0.06 10^3/uL (0.0-0.2); Absolute Eosinophil Count 0.45 10^3/uL (0.0-0.7); Absolute Lymphocyte Count 1.55 10^3/uL (1.2-3.4); Absolute Monocyte Count 0.91 10^3/uL (0.1-0.8); Absolute Neutrophil Count 4.36 10^3/uL (1.2-6.7); Basophils % 0.8 %; Eosinophils % 6.1 %; HCT 43.9 % (40.0-50.0); HGB 15.5 g/dL (13.5-17.5); Immature Grans % 0.3 %; Lymphocytes % 21.1 %; MCH 32.2 pg (27.0-33.0); MCHC 35.3 % (32.0-36.0); MCV 91 fL (80-95); MPV 8.5 fL (8.0-11.0); Monocytes % 12.4 %; Neutrophils % 59.3 %; Platelet Count 234 10^3/uL (130-400); RBC 4.81 10^6/uL (4.36-5.78); RDW-SD 43.3 fL; WBC 7.35 10^3/uL (4.4-10.8)
[2024-07-29 15:30] LABS: BUN 14 mg/dL (7-18); CREATININE 1.1 mg/dL (0.70-1.30); Calcium 9.3 mg/dL (8.5-10.1); Chloride 106 mmol/L (98-107); Estimated GFR 70.01 (mL/min/1.73m2); Ferritin 150 ng/mL (26-388); Glucose 95 mg/dL (74-106); Sodium 142 mmol/L (136-145)
[2024-07-30 19:28] LABS: PSA, Screening 3.9 ng/mL (<=6.5)
== END 2024-07-29 03:35 | disposition home or self-care (01) ==
LOC: LBO 03:34
PROVIDERS: PCP Family Medicine; Visit Provider Family Medicine
DX: D64.9 Anemia, unspecified (principal); N40.1 Benign prostatic hyperplasia with lower urinary tract symptoms; I10 Essential (primary) hypertension
CPT/HCPCS: 36415; 80048; 84153; 82728; 85025

== ENCOUNTER 2024-09-02 02:07 | Outpatient (CLI) | payer MEDICARE, SELFPAY ==
--- NOTE | 2024-09-02 12:00 | DI.US_ITS ---
APPROVED REPORT EXAM: Comprehensive 2D, Doppler, and color-flow Echocardiogram Patient Location: Out-Patient [facility] Supervisor: Jai Davis RDCS (AE) Indications: Surveillance for aortic stenosis Conclusion Normal left ventricular wall thickness and chamber size. Ejection fraction is 60 to 65%. Wall motio n is normal Normal right ventricular size and function Both atria are normal in size Aortic valve is calcified and trileaflet. There is mild aortic stenosis. Peak gradient is 21, mean 13 mmHg. There is trivial aortic regurgitation Mild mitral regurgitation Wall motion Left Ventricle Left ventricle is mildly dilated. The left ventricular systolic function is normal. The left ventricu lar ejection fraction is within the normal range. There is normal left ventricular wall thickness. Th ere is normal LV segmental wall motion. The left ventricular diastolic function is normal. There is n o ventricular septal defect visualized. LVEF is 60-65%. Right Ventricle The right ventricle is normal size. The right ventricular systolic function is normal. Atria The left atrium size is normal. The right atrium size is normal. The interatrial septum is intact wit h no evidence for an atrial septal defect. Aortic Valve Aortic valve is calcified. Aortic valve is trileaflet. Mild aortic stenosis. Peak aortic valve gradie nt is 22.56 mmHg. Highest mean aortic valve gradient is 13.14 mmHg. Calculated BURT by the continuity equation is 1.2cm2. Trivial aortic regurgitation. Mitral Valve The mitral valve is normal in structure. No evidence of mitral valve stenosis. Mild mitral regurgitat ion. Tricuspid Valve The tricuspid valve is normal in structure. There is no tricuspid valve stenosis. Trace tricuspid reg urgitation. Unable to assess PA pressure. Pulmonic Valve The pulmonary valve is normal in structure. There is no pulmonic valvular stenosis. There is no pulmo александр valvular regurgitation. Great Vessels The aortic root is normal in size. The ascending aorta is normal in size. Aortic arch is normal in ca liber. IVC is normal in size and collapses >50% with inspiration. Pericardium There is no pericardial effusion. 2D Dimensions IVSD d PLAX 0.68 cm M: 0.6-1.2 Ao Root d 2.87 cm M: 3.1 - 3.7 LVPW d PLAX 0.67 cm M: 0.6 - 1.2 Ao Asc Diam d 3.31 cm M: 2.6 - 3.4 LVID d PLAX 5.97 cm M: 4.2 - 5.8 LVDs 3.82 cm M: 2.5 - 4.0 LV EF Teichholz 64.8 % FS 36.07 % LV EDV (Teich) 177.9 mL LV ESV (Teich) 62.6 mL Stroke Vol Index (Teich) 56.54 M-Mode TAPSE 2.24 cm (M/F) >1.7 Auto EF LV EDV A4C 126.7 mL LV EDV A2C 129.0 mL LV EDV BP 129.0 mL LV ESV A4C 50.6 mL LV ESV A2C 45.3 mL LV ESV BP 47.9 mL LVEF(%) A4C 60.0 % LVEF(%) A2C 64.9 % LVEF(%) BP 62.9 % LV SV A4C 76.1 ml LV SV A2C 83.7 ml LV SV BP 81.1 ml LV CO A4C 5.5 L/min LV CO A2C 5.7 L/min LV CO BP 5.6 L/min HR A4C 71.72 BPM HR A2C 67.80 BPM LV EDV Index (BP) LA Volume LA Length A4C 4.3 cm LA Length A2C 4.9 cm LA Area A4C s 12.78 cm2 LA Area A2C s 15.66 cm2 LA Vol A4C A-L 32.30 mL LA Vol A2C A-L 42.47 mL LA Vol Biplane A-L 39.6 mL LA Vol/BSA A4C A-L LA Vol/BSA A2C A-L LA Vol/BSA BP A-L 19.4 mL/m2 LA Vol A4C MOD 30.1 mL LA Vol A2C MOD 39.3 mL LA Vol BP MOD 36.3 mL RA Volume RA Area A4C 10.7 cm2 RA ESV A4C (A-L) 24.4mL RA Vol/BSA A4C A-L RA Length A4C 4.0 cm RA ESV A4C (MOD) 20.7mL LV Diastology MV E' medial 0.073 (>0.07 m/s) MV E Vmax 0.70 (0.4-1.3 m/s) MV E/E' MED 9.46 (<14) MV A Vmax 0.90 (0.4-1.3 m/s) MV E' lateral 0.078 (>0.1 m/s) E/A Ratio 0.8 MV E/E' LAT 8.90 (<14) MV E' Average 0.076 m/s MV E/E'(average) 9.17 Aortic Valve AoV Vmax 2.37 m/s LVOT Vmax 0.85 m/s AoV Peak Grad 22.6 mmHg LVOT Peak Grad 2.9 mmHg AoV Area (Vmax) 1.18 cm2 LVOT VTI 0.192 m AoV VTI 0.510 m LVOT Mean Grad 1.7 mmHg AoV Mean Regan. 1.72 m/s LVOT SV 62.90 mL AoV Mean Grad 13.1 mmHg LVOT Diam s 2.00 cm AoV Area (VTI) 1.23 cm2 AV Regurg Peak Gr. 22.56 mmHg Velocity Ratio 0.36 Mitral Valve MV DT 198 (160-240 msec) Pulmonary Valve PV Vmax 1.24 (0.5-1.5 m/s) RVOT Vmax 0.66 m/s PV Peak Grad 6.1 mmHg RVOT Peak Gr. 1.8 mmHg PV Mean Regan 0.83 m/s RVOT VTI 0.140 m PV Mean Grad 3.1 mmHg RVOT Mean Gr. 1.1 mmHg
== END 2024-09-02 02:27 ==
LOC: DI 02:07
PROVIDERS: PCP Family Medicine; Visit Provider Internal Medicine Cardiovascular Disease
DX: I35.0 Nonrheumatic aortic (valve) stenosis (principal)
CPT/HCPCS: 93306

== ENCOUNTER 2025-02-18 20:43 | Emergency (ER) | payer MEDICARE, SELFPAY ==
[2025-02-18 20:46] VITALS: BP 139/78; PULSE 69; RESP 18; TEMP 36.2; O2SAT 96
== END 2025-02-18 21:22 | disposition left against medical advice (07) ==
LOC: ER 21:16
PROVIDERS: PCP Family Medicine
DX: Z53.21 Procedure and treatment not carried out due to patient leaving prior to being seen by health care provider (principal)